=== PATIENT | female | born 1935 | race African-American/Black ===

== ENCOUNTER 2021-08-21 15:33 | Inpatient (IN) | payer OTHER, BC ==
[2021-08-21 15:52] VITALS: BMI 17.9
[2021-08-21] MEDS ORDERED: ACETAMINOPHEN 1000 MG/100 ML BAG IVPB ONE (16:45)
[2021-08-21] MEDS ORDERED: SODIUM CHLORIDE 0.9% 500 ML INFUS.BAG IV ONE (17:25)
[2021-08-21] MEDS ORDERED: ACETAMINOPHEN INJECTION 100 ML IVPB ONE (17:27)
[2021-08-21 18:53] LABS: BASO % 0.2 % (0-2.0); HEMATOCRIT 26.5 % (32.4-45.2); HEMOGLOBIN 8.1 GM/dL (10.7-15.3); LYMPH % 4.7 % (8-40); MCH 24.1 pg (25.7-33.7); MCHC 30.4 g/dl (32.0-36.0); MEAN CELL VOLUME 79.4 fl (80-96); MEAN PLT VOLUME 8.1 fl (7.5-11.1); MONO % 4.5 % (3.8-10.2); NEUT % 90.6 % (42.8-82.8); PLATELET COUNT 326 10^3/uL (134-434); RBC 3.34 M/mm3 (3.60-5.2); RDW 19.8 % (11.6-15.6); WHITE BLOOD COUNT 15.7 K/mm3 (4.0-10.0)
[2021-08-21 19:03] LABS: ALBUMIN 2.4 g/dl (3.4-5.0); BLOOD UREA NITROGEN 37.4 mg/dL (7-18)
[2021-08-21 19:06] LABS: CREATININE 2.1 mg/dL (0.55-1.3)
[2021-08-21 19:07] LABS: BILIRUBIN,TOTAL 0.7 mg/dL (0.2-1); TOT PROT 5.8 g/dl (6.4-8.2)
[2021-08-21 19:08] LABS: N-TERMINAL BNP 1539.2 pg/ml (5-450)
[2021-08-21] MEDS ORDERED: ACETAMINOPHEN 325 MG TABLET (FP) PO PRN (21:44)
[2021-08-21] MEDS ORDERED: POLYETHYLENE GLYCOL (HEALTHYLAX) 3350 17 GM PACKET PO PRN (21:44)
[2021-08-21 23:33] LABS: INR 1.09 (0.83-1.09); PROTHROMBIN TIME (PATIENT) 12.6 SEC (9.7-13.0)
[2021-08-22] MEDS ORDERED: HEPARIN NA (PORCINE) 5,000 UNITS/ML 1ML VIAL IVPUSH PRN ×2 (00:33)
[2021-08-22] MEDS ORDERED: HEPARIN NA (PORCINE) 5,000 UNITS/ML 1ML VIAL IVPUSH ONE (00:33)
[2021-08-22] MEDS ORDERED: HEPARIN NA (PORCINE) 5,000 UNITS/ML 1ML VIAL ONE (00:58)
[2021-08-22] MEDS: HEPARIN INFUSION - 25,000 UNITS/500 ML INFUS.BAG IVPB SCH ×2 (01:09→09:13)
[2021-08-22] MEDS ORDERED: SODIUM CHLORIDE 0.9% 500 ML INFUS.BAG IV ONE (01:46)
[2021-08-22] MEDS ORDERED: DEXTROSE 5%-0.45% SALINE 1,000 ML IV SCH (02:00)
[2021-08-22 06:46] LABS: BASO % 0.1 % (0-2.0); HEMATOCRIT 26.5 % (32.4-45.2); HEMOGLOBIN 8.2 GM/dL (10.7-15.3); LYMPH % 6.1 % (8-40); MCH 24.2 pg (25.7-33.7); MCHC 30.9 g/dl (32.0-36.0); MEAN CELL VOLUME 78.4 fl (80-96); MEAN PLT VOLUME 7.9 fl (7.5-11.1); MONO % 4.6 % (3.8-10.2); NEUT % 89.2 % (42.8-82.8); PLATELET COUNT 349 10^3/uL (134-434); RBC 3.38 M/mm3 (3.60-5.2); RDW 19.9 % (11.6-15.6); WHITE BLOOD COUNT 17.9 K/mm3 (4.0-10.0)
[2021-08-22 09:19] LABS: EPI CELLS 27 /uL (0-25.1); HYALINE CASTS 25 /uL (0-3.1); URINE APPEARANCE TURBID; URINE BILIRUBIN 3+ (NEGATIVE); URINE COLOR ORANGE; URINE GLUCOSE (UA) NEGATIVE (NEGATIVE); URINE KETONE TRACE (NEGATIVE); URINE LEUK ESTERASE 1+ (NEGATIVE); URINE NITRITE POSITIVE (NEGATIVE); URINE PROTEIN 2+ (NEGATIVE); URINE UROBILINOGEN 0.2 mg/dL (0.2-1.0); URINE WBC 247 /uL (0-25.8)
[2021-08-22] MEDS ORDERED: amLODIPine BESYLATE 5 MG TABLET (FP) ONE (09:20)
[2021-08-22] MEDS ORDERED: LOSARTAN POTASSIUM 50 MG TABLET ONE (09:21)
[2021-08-22 09:43] LABS: URINE RBC 85.3 /uL (0-23.9)
[2021-08-22 09:44] LABS: URINE BACTERIA 1780.9 /uL (0-1359); URINE CRYSTALS CA OXALATE /hpf
[2021-08-22] MEDS ORDERED: LOSARTAN POTASSIUM 50 MG TABLET PO SCH (10:00)
[2021-08-22] MEDS ORDERED: amLODIPine BESYLATE 5 MG TABLET (FP) PO SCH (10:00)
[2021-08-22 13:00] LABS: CALCIUM 7.8 mg/dL (8.5-10.1)
[2021-08-22] MEDS ORDERED: DEXTROSE 5%-NORMAL SALINE 1,000 ML IV SCH (13:00)
[2021-08-22 13:01] LABS: BLOOD UREA NITROGEN 44.4 mg/dL (7-18); MAGNESIUM 2.5 mg/dL (1.8-2.4)
[2021-08-22 13:04] LABS: CREATININE 2.2 mg/dL (0.55-1.3); URIC ACID 10.3 mg/dL (2.6-7.2)
[2021-08-22 13:05] LABS: BILIRUBIN,TOTAL 0.4 mg/dL (0.2-1)
[2021-08-22 13:06] LABS: TOT PROT 5.1 g/dl (6.4-8.2)
[2021-08-22] MEDS ORDERED: CEFTRIAXONE 1 GM/50 ML BAG ONE (14:02)
[2021-08-22] MEDS ORDERED: SODIUM CHLORIDE 1,000 ML IV SCH (14:15)
[2021-08-22] MEDS ORDERED: CEFTRIAXONE 1 GM in DEXTROSE 5%-WATER - 50 ML IVPB SCH (14:15)
[2021-08-22] MEDS: CEFTRIAXONE 1 GM in DEXTROSE 5%-WATER - 50 ML IVPB SCH (16:16)
[2021-08-22 16:36] LABS: INR 1.24 (0.83-1.09)
[2021-08-22 17:03] LABS: ACTIVATED PTT > 400.0 SECONDS (25.2-36.5)
[2021-08-22] MEDS: TIMOLOL 0.5% OPHTHALMIC SOL 5 ML BOTTLE OD SCH (19:28)
[2021-08-22] MEDS: CARBIDOPA/LEVODOPA 10/100 TABLET (FP) PO SCH ×2 (19:28→22:57)
[2021-08-23] MEDS: HEPARIN INFUSION - 25,000 UNITS/500 ML INFUS.BAG IVPB SCH (03:45)
[2021-08-23 09:24] LABS: CALCIUM 7.6 mg/dL (8.5-10.1)
[2021-08-23 09:25] LABS: BLOOD UREA NITROGEN 46.4 mg/dL (7-18); MAGNESIUM 2.4 mg/dL (1.8-2.4)
[2021-08-23 09:28] LABS: CREATININE 1.7 mg/dL (0.55-1.3)
[2021-08-23 09:29] LABS: TOT PROT 4.9 g/dl (6.4-8.2)
[2021-08-23 09:30] LABS: BILIRUBIN,TOTAL 0.4 mg/dL (0.2-1)
[2021-08-23 10:00] LABS: BASO % 0.1 % (0-2.0); EOS % 0.1 % (0-4.5); HEMATOCRIT 23.3 % (32.4-45.2); HEMOGLOBIN 7.2 GM/dL (10.7-15.3); LYMPH % 7.9 % (8-40); MCH 24.1 pg (25.7-33.7); MCHC 30.8 g/dl (32.0-36.0); MEAN CELL VOLUME 78.1 fl (80-96); MEAN PLT VOLUME 7.9 fl (7.5-11.1); MONO % 5.6 % (3.8-10.2); NEUT % 86.3 % (42.8-82.8); PLATELET COUNT 267 10^3/uL (134-434); RBC 2.99 M/mm3 (3.60-5.2); RDW 19.7 % (11.6-15.6); WHITE BLOOD COUNT 14.1 K/mm3 (4.0-10.0)
[2021-08-23] MEDS ORDERED: CEFTRIAXONE 1 GM/50 ML BAG ONE (10:35)
[2021-08-23] MEDS: CEFTRIAXONE 1 GM in DEXTROSE 5%-WATER - 50 ML IVPB SCH (11:05)
[2021-08-23] MEDS: CARBIDOPA/LEVODOPA 10/100 TABLET (FP) PO SCH ×2 (11:05→21:42)
[2021-08-23] MEDS: TIMOLOL 0.5% OPHTHALMIC SOL 5 ML BOTTLE OD SCH (12:14)
[2021-08-23] MEDS: SODIUM CHLORIDE 0.45% 1,000 ML IV SCH (15:38)
[2021-08-24] MEDS: HEPARIN INFUSION - 25,000 UNITS/500 ML INFUS.BAG IVPB SCH (06:38)
[2021-08-24 07:59] LABS: BASO % 0.1 % (0-2.0); EOS % 0.3 % (0-4.5); HEMATOCRIT 21.2 % (32.4-45.2); LYMPH % 12.9 % (8-40); MCH 24.6 pg (25.7-33.7); MCHC 31.6 g/dl (32.0-36.0); MEAN CELL VOLUME 77.9 fl (80-96); MEAN PLT VOLUME 8.1 fl (7.5-11.1); MONO % 6.9 % (3.8-10.2); NEUT % 79.8 % (42.8-82.8); PLATELET COUNT 266 10^3/uL (134-434); RBC 2.72 M/mm3 (3.60-5.2); RDW 20.1 % (11.6-15.6); WHITE BLOOD COUNT 9.5 K/mm3 (4.0-10.0)
[2021-08-24 08:11] LABS: CALCIUM 7.6 mg/dL (8.5-10.1); MAGNESIUM 2.2 mg/dL (1.8-2.4)
[2021-08-24 08:14] LABS: CREATININE 1.3 mg/dL (0.55-1.3)
[2021-08-24 08:16] LABS: BILIRUBIN,TOTAL 0.7 mg/dL (0.2-1); TOT PROT 4.8 g/dl (6.4-8.2)
[2021-08-24 09:11] LABS: HEMOGLOBIN 6.7 GM/dL (10.7-15.3)
[2021-08-24] MEDS ORDERED: cefTRIAXone SODIUM 1 GM VIAL ONE (10:00)
[2021-08-24] MEDS ORDERED: DEXTROSE 5%-WATER - 50 ML IVPB ONE (10:00)
[2021-08-24] MEDS: CEFTRIAXONE 1 GM in DEXTROSE 5%-WATER - 50 ML IVPB SCH (10:02)
[2021-08-24] MEDS: CARBIDOPA/LEVODOPA 10/100 TABLET (FP) PO SCH ×2 (10:02→22:45)
[2021-08-24] MEDS: TIMOLOL 0.5% OPHTHALMIC SOL 5 ML BOTTLE OD SCH (10:10)
[2021-08-24 11:50] LABS: HEMATOCRIT 20.7 % (32.4-45.2); MCH 24.9 pg (25.7-33.7); MCHC 32.4 g/dl (32.0-36.0); MEAN CELL VOLUME 76.8 fl (80-96); MEAN PLT VOLUME 7.6 fl (7.5-11.1); PLATELET COUNT 258 10^3/uL (134-434); RBC 2.69 M/mm3 (3.60-5.2); RDW 19.5 % (11.6-15.6); WHITE BLOOD COUNT 8.7 K/mm3 (4.0-10.0)
[2021-08-24 13:12] LABS: HEMOGLOBIN 6.7 GM/dL (10.7-15.3)
[2021-08-24] MEDS ORDERED: MEROPENEM 500 MG in DEXTROSE 5%-WATER 100 ML IVPB SCH (13:15)
[2021-08-24] MEDS: SODIUM CHLORIDE 0.45% 1,000 ML IV SCH (14:23)
[2021-08-24] MEDS: PANTOPRAZOLE SODIUM 40 MG VIAL IVPUSH SCH (18:24)
[2021-08-25] MEDS ORDERED: DEXTROSE 5%-WATER - 50 ML IVPB ONE (10:30)
[2021-08-25] MEDS ORDERED: cefTRIAXone SODIUM 1 GM VIAL ONE (10:30)
[2021-08-25] MEDS: CARBIDOPA/LEVODOPA 10/100 TABLET (FP) PO SCH ×2 (10:34→23:13)
[2021-08-25] MEDS: CEFTRIAXONE 1 GM in DEXTROSE 5%-WATER - 50 ML IVPB SCH (10:34)
[2021-08-25] MEDS: TIMOLOL 0.5% OPHTHALMIC SOL 5 ML BOTTLE OD SCH (10:35)
[2021-08-25] MEDS: PANTOPRAZOLE SODIUM 40 MG VIAL IVPUSH SCH (10:35)
[2021-08-25] MEDS: SODIUM CHLORIDE 0.45% 1,000 ML IV SCH (14:33)
[2021-08-25 15:05] LABS: MCH 26.5 pg (25.7-33.7); MCHC 33.2 g/dl (32.0-36.0); MEAN CELL VOLUME 79.8 fl (80-96); MEAN PLT VOLUME 7.8 fl (7.5-11.1); PLATELET COUNT 262 10^3/uL (134-434); RBC 3.38 M/mm3 (3.60-5.2); RDW 20.1 % (11.6-15.6); RETICULOCYTES 2.04 % (0.5-1.5); WHITE BLOOD COUNT 6.7 K/mm3 (4.0-10.0)
[2021-08-25 15:24] LABS: ANISOCYTOSIS 1+; MACROCYTOSIS 1+; PLATELET ESTIMATE NORMAL
[2021-08-25 15:38] LABS: IRON SERUM 68 ug/dL (50-175); TOTAL IRON BINDING CAPACITY 154 ug/dL (250-450)
[2021-08-25 15:39] LABS: CHLORIDE 114 mmol/L (98-107); SODIUM 142 mmol/L (136-145)
[2021-08-25 15:41] LABS: CALCIUM 7.7 mg/dL (8.5-10.1)
[2021-08-25 15:42] LABS: ALBUMIN 1.8 g/dl (3.4-5.0); ANION GAP 6 MMOL/L (8-16); BLOOD UREA NITROGEN 19.8 mg/dL (7-18); CO2 23 mmol/L (21-32); GLUCOSE,RANDOM 66 mg/dL (74-106)
[2021-08-25 15:45] LABS: CREATININE 0.7 mg/dL (0.55-1.3); SGOT/AST 15 U/L (15-37); SGPT/ALT < 6 U/L (13-61)
[2021-08-25 15:46] LABS: BILIRUBIN,TOTAL 0.6 mg/dL (0.2-1); TOT PROT 4.4 g/dl (6.4-8.2)
[2021-08-25 15:47] LABS: ALK PHOS 118 U/L (45-117)
[2021-08-26 07:44] LABS: CHLORIDE 111 mmol/L (98-107); SODIUM 141 mmol/L (136-145)
[2021-08-26 07:47] LABS: ANION GAP 9 MMOL/L (8-16); BASO % 0.2 % (0-2.0); BLOOD UREA NITROGEN 15.8 mg/dL (7-18); CALCIUM 7.7 mg/dL (8.5-10.1); CO2 20 mmol/L (21-32); EOS % 1.8 % (0-4.5); HEMATOCRIT 27.2 % (32.4-45.2); HEMOGLOBIN 8.9 GM/dL (10.7-15.3); LYMPH % 14.4 % (8-40); MCH 26.2 pg (25.7-33.7); MCHC 32.6 g/dl (32.0-36.0); MEAN CELL VOLUME 80.5 fl (80-96); MEAN PLT VOLUME 8.1 fl (7.5-11.1); MONO % 7.8 % (3.8-10.2); NEUT % 75.8 % (42.8-82.8); PLATELET COUNT 302 10^3/uL (134-434); RBC 3.38 M/mm3 (3.60-5.2); RDW 19.9 % (11.6-15.6); WHITE BLOOD COUNT 7.6 K/mm3 (4.0-10.0)
[2021-08-26 07:51] LABS: CREATININE 0.7 mg/dL (0.55-1.3)
[2021-08-26 07:56] LABS: GLUCOSE,RANDOM 49 mg/dL (74-106)
[2021-08-26] MEDS ORDERED: POTASSIUM CHLORIDE ORAL LIQUID 20 MEQ/15 ML PO ONE (08:29)
[2021-08-26] MEDS ORDERED: DEXTROSE 5%-WATER - 50 ML IVPB ONE (08:35)
[2021-08-26] MEDS ORDERED: cefTRIAXone SODIUM 1 GM VIAL ONE (08:35)
[2021-08-26] MEDS: CARBIDOPA/LEVODOPA 10/100 TABLET (FP) PO SCH ×2 (10:05→23:01)
[2021-08-26] MEDS: PANTOPRAZOLE SODIUM 40 MG VIAL IVPUSH SCH (10:05)
[2021-08-26] MEDS: CEFTRIAXONE 1 GM in DEXTROSE 5%-WATER - 50 ML IVPB SCH (10:05)
[2021-08-26] MEDS: ENOXAPARIN NA (PORCINE) 40 MG/0.4 ML DISP.SYRIN SQ SCH ×2 (10:05→22:58)
[2021-08-26] MEDS: D5-1/2NS+10 MEQ KCL - 10 MEQ/1,000 ML INFUS.BAG IV SCH (10:20)
[2021-08-26] MEDS: TIMOLOL 0.5% OPHTHALMIC SOL 5 ML BOTTLE OD SCH (13:39)
[2021-08-26 14:21] LABS: HEMATOCRIT 29.4 % (32.4-45.2); HEMOGLOBIN 9.5 GM/dL (10.7-15.3); MCHC 32.1 g/dl (32.0-36.0); MEAN PLT VOLUME 8.3 fl (7.5-11.1); PLATELET COUNT 323 10^3/uL (134-434); RBC 3.64 M/mm3 (3.60-5.2); RDW 20.1 % (11.6-15.6); WHITE BLOOD COUNT 7.9 K/mm3 (4.0-10.0)
[2021-08-27] MEDS: D5-1/2NS+10 MEQ KCL - 10 MEQ/1,000 ML INFUS.BAG IV SCH ×2 (02:00→09:01)
[2021-08-27 07:53] LABS: CALCIUM 7.3 mg/dL (8.5-10.1)
[2021-08-27 07:56] LABS: CREATININE 0.7 mg/dL (0.55-1.3)
[2021-08-27 08:00] LABS: BASO % 0.2 % (0-2.0); EOS % 1.5 % (0-4.5); HEMATOCRIT 25.8 % (32.4-45.2); HEMOGLOBIN 8.4 GM/dL (10.7-15.3); LYMPH % 12.8 % (8-40); MCH 26.2 pg (25.7-33.7); MCHC 32.6 g/dl (32.0-36.0); MEAN CELL VOLUME 80.5 fl (80-96); MEAN PLT VOLUME 7.7 fl (7.5-11.1); NEUT % 75.5 % (42.8-82.8); PLATELET COUNT 298 10^3/uL (134-434); RBC 3.21 M/mm3 (3.60-5.2); WHITE BLOOD COUNT 7.2 K/mm3 (4.0-10.0)
[2021-08-27] MEDS ORDERED: cefTRIAXone SODIUM 1 GM VIAL ONE (08:23)
[2021-08-27] MEDS ORDERED: DEXTROSE 5%-WATER - 50 ML IVPB ONE (08:24)
[2021-08-27] MEDS: TIMOLOL 0.5% OPHTHALMIC SOL 5 ML BOTTLE OD SCH (09:00)
[2021-08-27] MEDS: ENOXAPARIN NA (PORCINE) 40 MG/0.4 ML DISP.SYRIN SQ SCH ×2 (09:00→21:21)
[2021-08-27] MEDS: CEFTRIAXONE 1 GM in DEXTROSE 5%-WATER - 50 ML IVPB SCH (09:01)
[2021-08-27] MEDS: PANTOPRAZOLE SODIUM 40 MG VIAL IVPUSH SCH (09:01)
[2021-08-27] MEDS: CARBIDOPA/LEVODOPA 10/100 TABLET (FP) PO SCH ×2 (14:00→21:21)
[2021-08-28 08:28] LABS: BASO % 0.3 % (0-2.0); EOS % 2.5 % (0-4.5); HEMATOCRIT 25.3 % (32.4-45.2); HEMOGLOBIN 8.2 GM/dL (10.7-15.3); LYMPH % 17.7 % (8-40); MCH 26.4 pg (25.7-33.7); MCHC 32.4 g/dl (32.0-36.0); MEAN CELL VOLUME 81.5 fl (80-96); MEAN PLT VOLUME 8.2 fl (7.5-11.1); MONO % 9.3 % (3.8-10.2); NEUT % 70.2 % (42.8-82.8); PLATELET COUNT 318 10^3/uL (134-434); RBC 3.11 M/mm3 (3.60-5.2); RDW 20.4 % (11.6-15.6); WHITE BLOOD COUNT 6.5 K/mm3 (4.0-10.0)
[2021-08-28] MEDS ORDERED: DEXTROSE 5%-WATER - 50 ML IVPB ONE (08:45)
[2021-08-28] MEDS ORDERED: cefTRIAXone SODIUM 1 GM VIAL ONE (08:45)
[2021-08-28 09:01] LABS: CALCIUM 7.3 mg/dL (8.5-10.1)
[2021-08-28 09:04] LABS: CREATININE 0.6 mg/dL (0.55-1.3)
[2021-08-28] MEDS: CARBIDOPA/LEVODOPA 10/100 TABLET (FP) PO SCH ×2 (09:47→21:31)
[2021-08-28] MEDS: ENOXAPARIN NA (PORCINE) 40 MG/0.4 ML DISP.SYRIN SQ SCH ×2 (09:47→21:31)
[2021-08-28] MEDS: CEFTRIAXONE 1 GM in DEXTROSE 5%-WATER - 50 ML IVPB SCH (09:47)
[2021-08-28] MEDS: PANTOPRAZOLE SODIUM 40 MG VIAL IVPUSH SCH (09:47)
[2021-08-28] MEDS: TIMOLOL 0.5% OPHTHALMIC SOL 5 ML BOTTLE OD SCH (09:58)
[2021-08-28] MEDS ORDERED: D5-1/2NS+10 MEQ KCL - 10 MEQ/1,000 ML INFUS.BAG IV SCH (13:50)
[2021-08-28] MEDS: MIRTAZAPINE 15 MG TABLET (FP) PO SCH (21:31)
[2021-08-29 07:30] LABS: BASO % 0.7 % (0-2.0); EOS % 1.9 % (0-4.5); HEMATOCRIT 27.6 % (32.4-45.2); HEMOGLOBIN 8.9 GM/dL (10.7-15.3); LYMPH % 15.8 % (8-40); MCH 26.6 pg (25.7-33.7); MCHC 32.2 g/dl (32.0-36.0); MEAN CELL VOLUME 82.8 fl (80-96); MEAN PLT VOLUME 8.3 fl (7.5-11.1); NEUT % 72.6 % (42.8-82.8); PLATELET COUNT 207 10^3/uL (134-434); RBC 3.33 M/mm3 (3.60-5.2); RDW 20.5 % (11.6-15.6); WHITE BLOOD COUNT 6.1 K/mm3 (4.0-10.0)
[2021-08-29 07:47] LABS: CHLORIDE 110 mmol/L (98-107); SODIUM 138 mmol/L (136-145)
[2021-08-29 07:48] LABS: CALCIUM 7.5 mg/dL (8.5-10.1)
[2021-08-29 07:49] LABS: ALBUMIN 1.5 g/dl (3.4-5.0); ANION GAP 8 MMOL/L (8-16); CO2 21 mmol/L (21-32); GLUCOSE,RANDOM 80 mg/dL (74-106)
[2021-08-29 07:52] LABS: CREATININE 0.6 mg/dL (0.55-1.3); PHOSPHOROUS 1.5 mg/dL (2.5-4.9); SGOT/AST 14 U/L (15-37); SGPT/ALT < 6 U/L (13-61)
[2021-08-29 07:54] LABS: ALK PHOS 127 U/L (45-117); BILIRUBIN,TOTAL 0.4 mg/dL (0.2-1); TOT PROT 4.2 g/dl (6.4-8.2)
[2021-08-29 09:23] LABS: ANISOCYTOSIS 1+; MACROCYTOSIS 1+; PLATELET ESTIMATE NORMAL
[2021-08-29] MEDS ORDERED: cefTRIAXone SODIUM 1 GM VIAL ONE (10:30)
[2021-08-29] MEDS ORDERED: DEXTROSE 5%-WATER - 50 ML IVPB ONE (10:31)
[2021-08-29] MEDS: CEFTRIAXONE 1 GM in DEXTROSE 5%-WATER - 50 ML IVPB SCH (11:25)
[2021-08-29] MEDS: PANTOPRAZOLE SODIUM 40 MG VIAL IVPUSH SCH (11:26)
[2021-08-29] MEDS: ENOXAPARIN NA (PORCINE) 40 MG/0.4 ML DISP.SYRIN SQ SCH ×2 (11:26→23:19)
[2021-08-29] MEDS: CARBIDOPA/LEVODOPA 10/100 TABLET (FP) PO SCH ×2 (11:27→23:21)
[2021-08-29] MEDS: TIMOLOL 0.5% OPHTHALMIC SOL 5 ML BOTTLE OD SCH (11:27)
[2021-08-29] MEDS: AMINO ACIDS 4.25%/D5W 1,000 ML IV SCH (11:28)
[2021-08-29 11:32] LABS: LIPASE 182 U/L (73-393)
[2021-08-29] MEDS ORDERED: SODIUM PHOSPHATE - 30 MM in DEXTROSE 5%-WATER - 500 ML IVPB ONE (11:42)
[2021-08-29] MEDS: CYANOCOBALAMIN (VITAMIN B-12) 1000 MCG/1 ML VIAL IM SCH (17:22)
[2021-08-29] MEDS ORDERED: LORazepam 2 MG/ML SDV VIAL IVPUSH ONE (20:30)
[2021-08-29] MEDS: MIRTAZAPINE 15 MG TABLET (FP) PO SCH (23:19)
[2021-08-30] MEDS ORDERED: cefTRIAXone SODIUM 1 GM VIAL ONE (08:26)
[2021-08-30] MEDS ORDERED: DEXTROSE 5%-WATER - 50 ML IVPB ONE (08:26)
[2021-08-30] MEDS: PANTOPRAZOLE SODIUM 40 MG VIAL IVPUSH SCH (10:55)
[2021-08-30] MEDS: CEFTRIAXONE 1 GM in DEXTROSE 5%-WATER - 50 ML IVPB SCH (10:56)
[2021-08-30] MEDS: ENOXAPARIN NA (PORCINE) 40 MG/0.4 ML DISP.SYRIN SQ SCH ×2 (10:56→22:44)
[2021-08-30] MEDS: AMINO ACIDS 4.25%/D5W 1,000 ML IV SCH (10:56)
[2021-08-30] MEDS: CARBIDOPA/LEVODOPA 10/100 TABLET (FP) PO SCH ×2 (10:57→22:44)
[2021-08-30] MEDS: TIMOLOL 0.5% OPHTHALMIC SOL 5 ML BOTTLE OD SCH (10:57)
[2021-08-30] MEDS: CYANOCOBALAMIN (VITAMIN B-12) 1000 MCG/1 ML VIAL IM SCH (11:00)
[2021-08-30] MEDS ORDERED: LORazepam 2 MG/ML SDV VIAL IVPUSH ONE (15:00)
[2021-08-30] MEDS: MIRTAZAPINE 15 MG TABLET (FP) PO SCH (22:44)
[2021-08-31] MEDS: ENOXAPARIN NA (PORCINE) 40 MG/0.4 ML DISP.SYRIN SQ SCH ×2 (09:10→21:10)
[2021-08-31] MEDS: CYANOCOBALAMIN (VITAMIN B-12) 1000 MCG/1 ML VIAL IM SCH (09:12)
[2021-08-31] MEDS: PANTOPRAZOLE SODIUM 40 MG VIAL IVPUSH SCH (09:17)
[2021-08-31] MEDS: CARBIDOPA/LEVODOPA 10/100 TABLET (FP) PO SCH ×2 (09:17→21:11)
[2021-08-31] MEDS: AMINO ACIDS 4.25%/D5W 1,000 ML IV SCH (09:22)
[2021-08-31] MEDS: TIMOLOL 0.5% OPHTHALMIC SOL 5 ML BOTTLE OD SCH (09:26)
[2021-08-31 10:55] LABS: BASO % 1.4 % (0-2.0); EOS % 2.6 % (0-4.5); HEMATOCRIT 25.9 % (32.4-45.2); HEMOGLOBIN 8.5 GM/dL (10.7-15.3); LYMPH % 16.1 % (8-40); MCH 26.9 pg (25.7-33.7); MEAN CELL VOLUME 81.5 fl (80-96); MEAN PLT VOLUME 7.5 fl (7.5-11.1); MONO % 10.8 % (3.8-10.2); NEUT % 69.1 % (42.8-82.8); PLATELET COUNT 389 10^3/uL (134-434); RBC 3.17 M/mm3 (3.60-5.2)
[2021-08-31 11:19] LABS: CHLORIDE 111 mmol/L (98-107); SODIUM 138 mmol/L (136-145)
[2021-08-31 11:21] LABS: CALCIUM 7.4 mg/dL (8.5-10.1)
[2021-08-31 11:22] LABS: ALBUMIN 1.4 g/dl (3.4-5.0); ANION GAP 2 MMOL/L (8-16); BLOOD UREA NITROGEN 10.4 mg/dL (7-18); CO2 24 mmol/L (21-32); GLUCOSE,RANDOM 107 mg/dL (74-106)
[2021-08-31 11:25] LABS: CREATININE 0.6 mg/dL (0.55-1.3); SGOT/AST 12 U/L (15-37)
[2021-08-31 11:26] LABS: BILIRUBIN,TOTAL 0.7 mg/dL (0.2-1)
[2021-08-31 11:27] LABS: TOT PROT 3.9 g/dl (6.4-8.2)
[2021-08-31 11:28] LABS: ALK PHOS 115 U/L (45-117)
[2021-08-31 11:31] LABS: SGPT/ALT < 6 U/L (13-61)
[2021-08-31] MEDS ORDERED: POTASSIUM CHLORIDE ORAL LIQUID 20 MEQ/15 ML PO ONE (15:13)
[2021-08-31] MEDS: MIRTAZAPINE 15 MG TABLET (FP) PO SCH (21:10)
[2021-09-01 07:49] LABS: BASO % 1.2 % (0-2.0); HEMATOCRIT 23.1 % (32.4-45.2); HEMOGLOBIN 7.6 GM/dL (10.7-15.3); LYMPH % 20.5 % (8-40); MCH 26.9 pg (25.7-33.7); MEAN CELL VOLUME 81.5 fl (80-96); MEAN PLT VOLUME 7.3 fl (7.5-11.1); MONO % 13.4 % (3.8-10.2); NEUT % 62.9 % (42.8-82.8); PLATELET COUNT 337 10^3/uL (134-434); RBC 2.83 M/mm3 (3.60-5.2); RDW 21.2 % (11.6-15.6); WHITE BLOOD COUNT 4.2 K/mm3 (4.0-10.0)
[2021-09-01 08:27] LABS: CHLORIDE 110 mmol/L (98-107); SODIUM 139 mmol/L (136-145)
[2021-09-01 08:34] LABS: ALBUMIN 1.4 g/dl (3.4-5.0); ANION GAP 6 MMOL/L (8-16); BLOOD UREA NITROGEN 12.2 mg/dL (7-18); CALCIUM 7.3 mg/dL (8.5-10.1); CO2 22 mmol/L (21-32); GLUCOSE,RANDOM 90 mg/dL (74-106)
[2021-09-01 08:37] LABS: CREATININE 0.5 mg/dL (0.55-1.3)
[2021-09-01 08:38] LABS: SGOT/AST 13 U/L (15-37)
[2021-09-01 08:39] LABS: BILIRUBIN,TOTAL 0.4 mg/dL (0.2-1); TOT PROT 3.6 g/dl (6.4-8.2)
[2021-09-01 08:40] LABS: ALK PHOS 103 U/L (45-117)
[2021-09-01 09:19] LABS: SGPT/ALT < 6 U/L (13-61)
[2021-09-01] MEDS: AMINO ACIDS 4.25%/D5W 1,000 ML IV SCH (09:57)
[2021-09-01] MEDS: TIMOLOL 0.5% OPHTHALMIC SOL 5 ML BOTTLE OD SCH (09:58)
[2021-09-01] MEDS: PANTOPRAZOLE SODIUM 40 MG VIAL IVPUSH SCH (09:58)
[2021-09-01] MEDS: CARBIDOPA/LEVODOPA 10/100 TABLET (FP) PO SCH ×2 (09:58→22:00)
[2021-09-01] MEDS: ENOXAPARIN NA (PORCINE) 40 MG/0.4 ML DISP.SYRIN SQ SCH ×2 (09:58→22:00)
[2021-09-01 10:09] LABS: ANISOCYTOSIS 2+; MACROCYTOSIS 0; PLATELET ESTIMATE NORMAL
[2021-09-01 11:02] LABS: HEMATOCRIT 24.6 % (32.4-45.2); MCH 26.7 pg (25.7-33.7); MCHC 32.5 g/dl (32.0-36.0); MEAN CELL VOLUME 82.2 fl (80-96); MEAN PLT VOLUME 7.6 fl (7.5-11.1); PLATELET COUNT 351 10^3/uL (134-434); RBC 2.99 M/mm3 (3.60-5.2); RDW 21.2 % (11.6-15.6); WHITE BLOOD COUNT 4.9 K/mm3 (4.0-10.0)
[2021-09-01] MEDS: MIRTAZAPINE 15 MG TABLET (FP) PO SCH (22:00)
[2021-09-02 08:13] LABS: EOS % 1.8 % (0-4.5); HEMATOCRIT 23.3 % (32.4-45.2); HEMOGLOBIN 7.7 GM/dL (10.7-15.3); MEAN CELL VOLUME 81.7 fl (80-96); MEAN PLT VOLUME 7.5 fl (7.5-11.1); MONO % 11.4 % (3.8-10.2); NEUT % 65.8 % (42.8-82.8); PLATELET COUNT 335 10^3/uL (134-434); RBC 2.85 M/mm3 (3.60-5.2); RDW 20.8 % (11.6-15.6); WHITE BLOOD COUNT 4.3 K/mm3 (4.0-10.0)
[2021-09-02 09:04] LABS: CALCIUM 7.7 mg/dL (8.5-10.1)
[2021-09-02 09:05] LABS: BLOOD UREA NITROGEN 14.8 mg/dL (7-18)
[2021-09-02 09:08] LABS: CREATININE 0.5 mg/dL (0.55-1.3)
[2021-09-02] MEDS: TIMOLOL 0.5% OPHTHALMIC SOL 5 ML BOTTLE OD SCH (10:29)
[2021-09-02] MEDS: PANTOPRAZOLE SODIUM 40 MG VIAL IVPUSH SCH (10:30)
[2021-09-02] MEDS: AMINO ACIDS 4.25%/D5W 1,000 ML IV SCH (10:30)
[2021-09-02] MEDS: CARBIDOPA/LEVODOPA 10/100 TABLET (FP) PO SCH ×2 (10:31→22:50)
[2021-09-02] MEDS: FERROUS SO4 325 MG TABLET (FP) PO SCH (18:26)
[2021-09-02] MEDS ORDERED: ACETAMINOPHEN 325 MG TABLET (FP) PO PRN (20:46)
[2021-09-02] MEDS: POLYETHYLENE GLYCOL (HEALTHYLAX) 3350 17 GM PACKET PO SCH (21:38)
[2021-09-02] MEDS: MIRTAZAPINE 15 MG TABLET (FP) PO SCH (21:38)
[2021-09-03] MEDS: FERROUS SO4 325 MG TABLET (FP) PO SCH ×2 (09:36→17:31)
[2021-09-03] MEDS: FOLIC ACID 1 MG TABLET (FP) PO SCH (09:39)
[2021-09-03] MEDS: PANTOPRAZOLE SODIUM 40 MG VIAL IVPUSH SCH (09:39)
[2021-09-03] MEDS: POLYETHYLENE GLYCOL (HEALTHYLAX) 3350 17 GM PACKET PO SCH ×2 (09:39→21:59)
[2021-09-03] MEDS: ASCORBIC ACID 500 MG TABLET (FP) PO SCH (09:40)
[2021-09-03] MEDS: TICAGRELOR 60 MG TABLET PO SCH (09:40)
[2021-09-03] MEDS: CARBIDOPA/LEVODOPA 10/100 TABLET (FP) PO SCH ×2 (09:40→21:59)
[2021-09-03] MEDS: TIMOLOL 0.5% OPHTHALMIC SOL 5 ML BOTTLE OD SCH (11:29)
[2021-09-03 11:49] LABS: BASO % 1.2 % (0-2.0); EOS % 1.5 % (0-4.5); HEMATOCRIT 26.1 % (32.4-45.2); HEMOGLOBIN 8.8 GM/dL (10.7-15.3); LYMPH % 17.7 % (8-40); MCH 27.6 pg (25.7-33.7); MCHC 33.5 g/dl (32.0-36.0); MEAN CELL VOLUME 82.6 fl (80-96); MEAN PLT VOLUME 7.6 fl (7.5-11.1); MONO % 8.3 % (3.8-10.2); NEUT % 71.3 % (42.8-82.8); PLATELET COUNT 345 10^3/uL (134-434); RBC 3.17 M/mm3 (3.60-5.2); RDW 20.6 % (11.6-15.6); WHITE BLOOD COUNT 4.3 K/mm3 (4.0-10.0)
[2021-09-03 11:55] LABS: BLOOD UREA NITROGEN 13.6 mg/dL (7-18); CALCIUM 7.9 mg/dL (8.5-10.1)
[2021-09-03 11:58] LABS: CREATININE 0.5 mg/dL (0.55-1.3)
[2021-09-03 11:59] LABS: BILIRUBIN,TOTAL 0.4 mg/dL (0.2-1); TOT PROT 4.5 g/dl (6.4-8.2)
[2021-09-03 12:01] LABS: ALBUMIN 1.7 g/dl (3.4-5.0)
[2021-09-03 12:11] LABS: HEMATOCRIT 26.8 % (32.4-45.2); HEMOGLOBIN 8.8 GM/dL (10.7-15.3); MCH 27.3 pg (25.7-33.7); MCHC 32.7 g/dl (32.0-36.0); MEAN CELL VOLUME 83.3 fl (80-96); MEAN PLT VOLUME 7.6 fl (7.5-11.1); PLATELET COUNT 360 10^3/uL (134-434); RBC 3.22 M/mm3 (3.60-5.2); RDW 21.1 % (11.6-15.6); WHITE BLOOD COUNT 4.3 K/mm3 (4.0-10.0)
[2021-09-03] MEDS: AMINO ACIDS 4.25%/D5W 1,000 ML IV SCH (17:32)
[2021-09-03] MEDS: MIRTAZAPINE 15 MG TABLET (FP) PO SCH (21:59)
[2021-09-04] MEDS: FERROUS SO4 325 MG TABLET (FP) PO SCH ×2 (08:55→18:24)
[2021-09-04 08:59] LABS: CALCIUM 7.9 mg/dL (8.5-10.1)
[2021-09-04 09:00] LABS: ALBUMIN 1.5 g/dl (3.4-5.0); BLOOD UREA NITROGEN 16.5 mg/dL (7-18)
[2021-09-04 09:02] LABS: PHOSPHOROUS 1.2 mg/dL (2.5-4.9)
[2021-09-04 09:03] LABS: CREATININE 0.5 mg/dL (0.55-1.3)
[2021-09-04 09:04] LABS: TOT PROT 4.1 g/dl (6.4-8.2)
[2021-09-04 09:05] LABS: BILIRUBIN,TOTAL 0.4 mg/dL (0.2-1)
[2021-09-04] MEDS: AMINO ACIDS 4.25%/D5W 1,000 ML IV SCH (11:14)
[2021-09-04] MEDS: PANTOPRAZOLE SODIUM 40 MG VIAL IVPUSH SCH (11:28)
[2021-09-04] MEDS: ASCORBIC ACID 500 MG TABLET (FP) PO SCH (11:31)
[2021-09-04] MEDS: POLYETHYLENE GLYCOL (HEALTHYLAX) 3350 17 GM PACKET PO SCH ×2 (11:31→21:06)
[2021-09-04] MEDS: FOLIC ACID 1 MG TABLET (FP) PO SCH (11:31)
[2021-09-04] MEDS: TIMOLOL 0.5% OPHTHALMIC SOL 5 ML BOTTLE OD SCH (11:32)
[2021-09-04] MEDS: CARBIDOPA/LEVODOPA 10/100 TABLET (FP) PO SCH ×2 (11:32→21:05)
[2021-09-04] MEDS: TICAGRELOR 60 MG TABLET PO SCH (11:32)
[2021-09-04] MEDS ORDERED: POTASSIUM PHOSPHATE 30 MM in DEXTROSE 5%-WATER - 500 ML IVPB ONE (14:00)
[2021-09-04] MEDS: MIRTAZAPINE 15 MG TABLET (FP) PO SCH (21:06)
[2021-09-05] MEDS: AMINO ACIDS 4.25%/D5W 1,000 ML IV SCH ×2 (04:46→11:02)
[2021-09-05] MEDS: PANTOPRAZOLE SODIUM 40 MG VIAL IVPUSH SCH (09:08)
[2021-09-05] MEDS: FERROUS SO4 325 MG TABLET (FP) PO SCH ×2 (09:09→17:18)
[2021-09-05] MEDS: CARBIDOPA/LEVODOPA 10/100 TABLET (FP) PO SCH (09:19)
[2021-09-05] MEDS: TICAGRELOR 60 MG TABLET PO SCH (09:19)
[2021-09-05] MEDS: FOLIC ACID 1 MG TABLET (FP) PO SCH (09:19)
[2021-09-05] MEDS: ASCORBIC ACID 500 MG TABLET (FP) PO SCH (09:19)
[2021-09-05] MEDS: POLYETHYLENE GLYCOL (HEALTHYLAX) 3350 17 GM PACKET PO SCH (09:19)
[2021-09-05] MEDS: TIMOLOL 0.5% OPHTHALMIC SOL 5 ML BOTTLE OD SCH (09:19)
[2021-09-05] MEDS ORDERED: PANTOPRAZOLE 40 MG TABLET PO SCH (10:45)
[2021-09-05] MEDS ORDERED: ENOXAPARIN NA (PORCINE) 40 MG/0.4 ML DISP.SYRIN SQ SCH (10:45)
[2021-09-05 12:47] LABS: BASO % 1.2 % (0-2.0); EOS % 1.8 % (0-4.5); HEMATOCRIT 23.9 % (32.4-45.2); HEMOGLOBIN 7.9 GM/dL (10.7-15.3); LYMPH % 16.6 % (8-40); MCH 27.2 pg (25.7-33.7); MEAN CELL VOLUME 82.5 fl (80-96); MEAN PLT VOLUME 7.6 fl (7.5-11.1); MONO % 11.3 % (3.8-10.2); NEUT % 69.1 % (42.8-82.8); PLATELET COUNT 325 10^3/uL (134-434); RBC 2.89 M/mm3 (3.60-5.2); RDW 22.2 % (11.6-15.6); WHITE BLOOD COUNT 4.8 K/mm3 (4.0-10.0)
[2021-09-05 13:18] LABS: CALCIUM 7.8 mg/dL (8.5-10.1)
[2021-09-05 13:19] LABS: MAGNESIUM 1.5 mg/dL (1.8-2.4)
[2021-09-05 13:21] LABS: CREATININE 0.5 mg/dL (0.55-1.3); PHOSPHOROUS 2.3 mg/dL (2.5-4.9)
[2021-09-05 13:57] LABS: ANISOCYTOSIS 2+; MACROCYTOSIS 1+; PLATELET ESTIMATE NORMAL
[2021-09-05 15:05] VITALS: BP 123/60; PULSE 66; TEMP 97.9
[2021-09-05] MEDS ORDERED: MAGNESIUM 1GM/D5W - 1 GM/100 ML IVPB IVPB ONE (16:30)
[2021-09-05] MEDS ORDERED: MAGNESIUM OXIDE 400 MG TABLET (FP) PO ONE (17:05)
[2021-09-05] MEDS ORDERED: MAGNESIUM OXIDE 400 MG TABLET (FP) PO SCH (22:00)
== END 2021-09-05 18:48 | DRG 871 ==
LOC: JER 15:33 → JERBED 18:07 → J4W 08-23 21:55 → J6S 09-02 19:53
PROVIDERS: ADMIT Hospitalist; ATTEND Internal Medicine
PROC: 30233N1 Transfusion of Nonautologous Red Blood Cells into Peripheral Vein, Percutaneous Approach (ICD-10-PCS; principal; 2021-08-24)
DX: A41.9 Sepsis, unspecified organism (principal); G93.41 Metabolic encephalopathy; E43 Unspecified severe protein-calorie malnutrition; J18.9 Pneumonia, unspecified organism; I82.402 Acute embolism and thrombosis of unspecified deep veins of left lower extremity; N17.9 Acute kidney failure, unspecified; I50.30 Unspecified diastolic (congestive) heart failure; I24.8 Other forms of acute ischemic heart disease; N39.0 Urinary tract infection, site not specified; R64 Cachexia; Z68.1 Body mass index [BMI] 19.9 or less, adult; G20 Parkinson's disease; F03.90 Unspecified dementia, unspecified severity, without behavioral disturbance, psychotic disturbance, mood disturbance, and anxiety; D49.1 Neoplasm of unspecified behavior of respiratory system; D64.9 Anemia, unspecified; E83.51 Hypocalcemia; H54.40 Blindness, one eye, unspecified eye; I10 Essential (primary) hypertension; B96.20 Unspecified Escherichia coli [E. coli] as the cause of diseases classified elsewhere
CPT/HCPCS: 36415; 36430; 70450-TC; 70551-TC; 71045-TC-FY; 71250-TC; 72131-TC; 74177-TC; 80048; 80053; 80061; 81003; 82378; 82550; 82570; 82607; 82962; 83036; 83540; 83550; 83605; 83690; 83735; 83880; 84100; 84156; 84300; 84443; 84484; 84550; 85025; 85027; 85045; 85379; 85610; 85730; 86038; 86850; 86900; 86901; 86922; 87086; 87186; 93005; 93010; 93306-TC; 93880-TC; 93970-TC; 97116-GP; 97161-GP; 99285-25; C9803; J0131; J1644; P9058; Q9967; U0003; U0005

== ENCOUNTER 2021-10-15 13:15 | Inpatient (IN) | payer OTHER, BC ==
[2021-10-15 13:38] VITALS: BMI 17.6
[2021-10-15 15:45] LABS: BASO % 0.3 % (0-2.0); HEMATOCRIT 16.2 % (32.4-45.2); LYMPH % 6.8 % (8-40); MCHC 31.7 g/dl (32.0-36.0); MEAN CELL VOLUME 97.7 fl (80-96); MEAN PLT VOLUME 7.3 fl (7.5-11.1); MONO % 3.4 % (3.8-10.2); NEUT % 89.5 % (42.8-82.8); PLATELET COUNT 677 10^3/uL (134-434); RBC 1.66 M/mm3 (3.60-5.2); RDW 18.4 % (11.6-15.6); WHITE BLOOD COUNT 13.1 K/mm3 (4.0-10.0)
[2021-10-15 15:51] LABS: HEMOGLOBIN 5.2 GM/dL (10.7-15.3)
[2021-10-15 16:04] LABS: ALBUMIN 1.5 g/dl (3.4-5.0); CALCIUM 7.9 mg/dL (8.5-10.1)
[2021-10-15 16:05] LABS: BLOOD UREA NITROGEN 27.1 mg/dL (7-18)
[2021-10-15 16:07] LABS: CREATININE 0.9 mg/dL (0.55-1.3)
[2021-10-15 16:09] LABS: BILIRUBIN,TOTAL 0.2 mg/dL (0.2-1); TOT PROT 4.5 g/dl (6.4-8.2)
[2021-10-15] MEDS ORDERED: ONDANSETRON 4 MG/2 ML VIAL IVPUSH ONE (16:58)
[2021-10-15] MEDS ORDERED: ONDANSETRON 4 MG/2 ML VIAL ONE (16:59)
[2021-10-15 19:07] LABS: URINE APPEARANCE CLEAR; URINE BILIRUBIN NEGATIVE (NEGATIVE); URINE COLOR YELLOW; URINE GLUCOSE (UA) NEGATIVE (NEGATIVE); URINE KETONE NEGATIVE (NEGATIVE); URINE LEUK ESTERASE NEGATIVE (NEGATIVE); URINE NITRITE NEGATIVE (NEGATIVE); URINE PROTEIN NEGATIVE (NEGATIVE); URINE UROBILINOGEN 0.2 mg/dL (0.2-1.0)
[2021-10-16] MEDS ORDERED: PIPERACILLIN/TAZOB 2.25 GM 2.25 GM in DEXTROSE 5%-WATER - 50 ML IVPB SCH (08:00)
[2021-10-16] MEDS ORDERED: TICAGRELOR 60 MG TABLET PO SCH (10:00)
[2021-10-16] MEDS ORDERED: PANTOPRAZOLE SODIUM 40 MG in SODIUM CHLORIDE 100 ML IVPUSH SCH (10:00)
[2021-10-16] MEDS ORDERED: PANTOPRAZOLE SODIUM 40 MG VIAL ONE ×2 (10:38→21:17)
[2021-10-16] MEDS: CARBIDOPA/LEVODOPA 10/100 TABLET (FP) PO SCH ×2 (10:48→22:25)
[2021-10-16] MEDS: TIMOLOL 0.5% OPHTHALMIC SOL 5 ML BOTTLE OD SCH (10:49)
[2021-10-16] MEDS: PANTOPRAZOLE SODIUM 40 MG VIAL IVPUSH SCH ×2 (10:49→21:39)
[2021-10-16 11:33] LABS: HEMATOCRIT 27.2 % (32.4-45.2); HEMOGLOBIN 9.1 GM/dL (10.7-15.3); MCH 29.9 pg (25.7-33.7); MCHC 33.4 g/dl (32.0-36.0); MEAN CELL VOLUME 89.5 fl (80-96); PLATELET COUNT 541 10^3/uL (134-434); RBC 3.04 M/mm3 (3.60-5.2); RDW 18.2 % (11.6-15.6); WHITE BLOOD COUNT 16.8 K/mm3 (4.0-10.0)
[2021-10-16 11:42] LABS: INR 1.4 (0.83-1.09); PROTHROMBIN TIME (PATIENT) 16.2 SEC (9.7-13.0)
[2021-10-16 11:45] LABS: ACTIVATED PTT 27.3 SECONDS (25.2-36.5)
[2021-10-16 11:56] LABS: BLOOD UREA NITROGEN 31.9 mg/dL (7-18); CALCIUM 8.1 mg/dL (8.5-10.1); MAGNESIUM 2.3 mg/dL (1.8-2.4)
[2021-10-16 12:00] LABS: CREATININE 0.9 mg/dL (0.55-1.3); PHOSPHOROUS 3.6 mg/dL (2.5-4.9)
[2021-10-16 12:02] LABS: ANISOCYTOSIS 0; HELMET CELLS 0; HOWELL-JOLLY BODIES 0; MACROCYTOSIS 0; OVALOCYTE 0; ROULEAU 0; SICKELED CELLS 0; TARGET CELLS 0; TEAR DROP CELLS 0; TOXIC GRANULATION 0
[2021-10-16 14:07] LABS: SARS-CoV-2 NAA Not Detected (Not Detected)
[2021-10-16] MEDS ORDERED: MIRTAZAPINE 15 MG TABLET (FP) ONE (21:17)
[2021-10-16] MEDS: MIRTAZAPINE 15 MG TABLET (FP) PO SCH (21:39)
[2021-10-17] MEDS: PANTOPRAZOLE SODIUM 40 MG VIAL IVPUSH SCH ×2 (10:27→21:30)
[2021-10-17] MEDS: CARBIDOPA/LEVODOPA 10/100 TABLET (FP) PO SCH ×2 (10:27→21:30)
[2021-10-17 12:06] LABS: HEMATOCRIT 27.6 % (32.4-45.2); HEMOGLOBIN 9.3 GM/dL (10.7-15.3); MCH 30.6 pg (25.7-33.7); MCHC 33.6 g/dl (32.0-36.0); MEAN PLT VOLUME 7.5 fl (7.5-11.1); PLATELET COUNT 520 10^3/uL (134-434); RBC 3.03 M/mm3 (3.60-5.2); RDW 18.1 % (11.6-15.6); WHITE BLOOD COUNT 10.2 K/mm3 (4.0-10.0)
[2021-10-17 12:34] LABS: CALCIUM 7.7 mg/dL (8.5-10.1)
[2021-10-17 12:35] LABS: BLOOD UREA NITROGEN 30.3 mg/dL (7-18)
[2021-10-17 12:38] LABS: CREATININE 0.8 mg/dL (0.55-1.3)
[2021-10-17] MEDS: TIMOLOL 0.5% OPHTHALMIC SOL 5 ML BOTTLE OD SCH (14:16)
[2021-10-17] MEDS: AMINO ACIDS/PROTEIN HYDROLYS 30 ML LIQUID.PKT PO SCH (17:54)
[2021-10-17] MEDS: MIRTAZAPINE 15 MG TABLET (FP) PO SCH (21:30)
[2021-10-18] MEDS ORDERED: APIXABAN 5 MG TABLET PO SCH (10:00)
[2021-10-18] MEDS: AMINO ACIDS/PROTEIN HYDROLYS 30 ML LIQUID.PKT PO SCH ×3 (10:15→17:45)
[2021-10-18] MEDS: PANTOPRAZOLE 40 MG TABLET PO SCH ×2 (10:15→21:48)
[2021-10-18] MEDS: TIMOLOL 0.5% OPHTHALMIC SOL 5 ML BOTTLE OD SCH (10:15)
[2021-10-18] MEDS: CARBIDOPA/LEVODOPA 10/100 TABLET (FP) PO SCH ×2 (10:15→22:37)
[2021-10-18 12:48] LABS: HEMATOCRIT 30.2 % (32.4-45.2); HEMOGLOBIN 9.9 GM/dL (10.7-15.3); MCH 30.1 pg (25.7-33.7); MCHC 32.7 g/dl (32.0-36.0); MEAN CELL VOLUME 92.1 fl (80-96); MEAN PLT VOLUME 7.1 fl (7.5-11.1); PLATELET COUNT 487 10^3/uL (134-434); RBC 3.28 M/mm3 (3.60-5.2); RDW 17.9 % (11.6-15.6); WHITE BLOOD COUNT 9.4 K/mm3 (4.0-10.0)
[2021-10-18] MEDS: APIXABAN 2.5 MG TABLET PO SCH ×2 (12:53→21:48)
[2021-10-18] MEDS ORDERED: IRON SUCROSE INJECTION 200 MG in SODIUM CHLORIDE 90 ML IVPB ONE (14:00)
[2021-10-18] MEDS ORDERED: DEXTROSE 5%-WATER - 1,000 ML IV SCH (14:15)
[2021-10-18] MEDS: MIRTAZAPINE 15 MG TABLET (FP) PO SCH (21:48)
[2021-10-18 23:06] LABS: CALCIUM 7.5 mg/dL (8.5-10.1)
[2021-10-18 23:07] LABS: BLOOD UREA NITROGEN 29.9 mg/dL (7-18)
[2021-10-18 23:10] LABS: CREATININE 0.8 mg/dL (0.55-1.3)
[2021-10-19 07:48] LABS: HEMATOCRIT 26.9 % (32.4-45.2); MCH 30.9 pg (25.7-33.7); MCHC 33.6 g/dl (32.0-36.0); MEAN CELL VOLUME 91.9 fl (80-96); MEAN PLT VOLUME 7.3 fl (7.5-11.1); PLATELET COUNT 442 10^3/uL (134-434); RBC 2.93 M/mm3 (3.60-5.2); RDW 17.3 % (11.6-15.6); WHITE BLOOD COUNT 8.2 K/mm3 (4.0-10.0)
[2021-10-19] MEDS: APIXABAN 2.5 MG TABLET PO SCH ×2 (10:37→21:00)
[2021-10-19] MEDS: AMINO ACIDS/PROTEIN HYDROLYS 30 ML LIQUID.PKT PO SCH ×3 (10:37→18:05)
[2021-10-19] MEDS: PANTOPRAZOLE 40 MG TABLET PO SCH ×2 (10:37→21:00)
[2021-10-19] MEDS: CARBIDOPA/LEVODOPA 10/100 TABLET (FP) PO SCH ×2 (10:38→21:01)
[2021-10-19] MEDS: TIMOLOL 0.5% OPHTHALMIC SOL 5 ML BOTTLE OD SCH (10:38)
[2021-10-19] MEDS: FERROUS GLUCONATE 324 MG TAB (FP) PO SCH (12:53)
[2021-10-19] MEDS: MIRTAZAPINE 15 MG TABLET (FP) PO SCH (21:01)
[2021-10-20] MEDS ORDERED: LEVOTHYROXINE NA 50 MCG TABLET (FP) PO SCH (07:00)
[2021-10-20] MEDS: FERROUS GLUCONATE 324 MG TAB (FP) PO SCH ×2 (07:13→16:28)
[2021-10-20 10:14] LABS: HEMATOCRIT 24.7 % (32.4-45.2); HEMOGLOBIN 8.4 GM/dL (10.7-15.3); MCH 30.9 pg (25.7-33.7); MEAN CELL VOLUME 90.6 fl (80-96); PLATELET COUNT 389 10^3/uL (134-434); RBC 2.72 M/mm3 (3.60-5.2); RDW 16.8 % (11.6-15.6); WHITE BLOOD COUNT 15.1 K/mm3 (4.0-10.0)
[2021-10-20 10:31] LABS: CALCIUM 7.2 mg/dL (8.5-10.1)
[2021-10-20 10:32] LABS: BLOOD UREA NITROGEN 34.9 mg/dL (7-18)
[2021-10-20 10:35] LABS: CREATININE 0.5 mg/dL (0.55-1.3)
[2021-10-20] MEDS: AMINO ACIDS/PROTEIN HYDROLYS 30 ML LIQUID.PKT PO SCH ×3 (10:41→18:20)
[2021-10-20] MEDS: PANTOPRAZOLE 40 MG TABLET PO SCH ×2 (10:42→22:12)
[2021-10-20] MEDS: APIXABAN 2.5 MG TABLET PO SCH ×2 (10:42→22:12)
[2021-10-20] MEDS: TIMOLOL 0.5% OPHTHALMIC SOL 5 ML BOTTLE OD SCH (10:42)
[2021-10-20] MEDS: CARBIDOPA/LEVODOPA 10/100 TABLET (FP) PO SCH ×2 (10:42→22:12)
[2021-10-20] MEDS ORDERED: POTASSIUM CHLORIDE TABS 10 MEQ TABLET.ER (FP) PO ONE (12:30)
[2021-10-20] MEDS ORDERED: FUROSEMIDE 40 MG/4 ML INJECTABLE VIAL IVPUSH ONE ×2 (13:45→16:30)
[2021-10-20] MEDS: MIRTAZAPINE 15 MG TABLET (FP) PO SCH (22:12)
[2021-10-21] MEDS: LEVOTHYROXINE NA 100 MCG TABLET (FP) PO SCH (06:22)
[2021-10-21] MEDS: AMINO ACIDS/PROTEIN HYDROLYS 30 ML LIQUID.PKT PO SCH ×3 (10:04→18:52)
[2021-10-21] MEDS: PANTOPRAZOLE 40 MG TABLET PO SCH ×2 (10:04→21:39)
[2021-10-21] MEDS: CARBIDOPA/LEVODOPA 10/100 TABLET (FP) PO SCH ×2 (10:04→21:39)
[2021-10-21] MEDS: APIXABAN 2.5 MG TABLET PO SCH ×2 (10:04→21:39)
[2021-10-21] MEDS: TIMOLOL 0.5% OPHTHALMIC SOL 5 ML BOTTLE OD SCH (10:04)
[2021-10-21] MEDS: FUROSEMIDE 40 MG TABLET (FP) PO SCH (10:04)
[2021-10-21 11:38] LABS: BASO % 0.2 % (0-2.0); EOS % 0.6 % (0-4.5); HEMATOCRIT 27.6 % (32.4-45.2); LYMPH % 8.4 % (8-40); MCH 30.4 pg (25.7-33.7); MCHC 32.8 g/dl (32.0-36.0); MEAN CELL VOLUME 92.7 fl (80-96); MEAN PLT VOLUME 7.7 fl (7.5-11.1); MONO % 5.2 % (3.8-10.2); NEUT % 85.6 % (42.8-82.8); PLATELET COUNT 353 10^3/uL (134-434); RBC 2.97 M/mm3 (3.60-5.2); RDW 17.2 % (11.6-15.6); WHITE BLOOD COUNT 14.4 K/mm3 (4.0-10.0)
[2021-10-21 12:15] LABS: BASO % 0.1 % (0-2.0); EOS % 0.4 % (0-4.5); HEMATOCRIT 29.2 % (32.4-45.2); HEMOGLOBIN 9.5 GM/dL (10.7-15.3); LYMPH % 7.1 % (8-40); MCH 30.5 pg (25.7-33.7); MCHC 32.7 g/dl (32.0-36.0); MEAN CELL VOLUME 93.3 fl (80-96); MEAN PLT VOLUME 7.4 fl (7.5-11.1); MONO % 4.7 % (3.8-10.2); NEUT % 87.7 % (42.8-82.8); PLATELET COUNT 437 10^3/uL (134-434); RBC 3.13 M/mm3 (3.60-5.2); RDW 17.4 % (11.6-15.6); WHITE BLOOD COUNT 16.4 K/mm3 (4.0-10.0)
[2021-10-21 12:19] LABS: CALCIUM 7.2 mg/dL (8.5-10.1)
[2021-10-21 12:20] LABS: ALBUMIN 1.3 g/dl (3.4-5.0); BLOOD UREA NITROGEN 44.8 mg/dL (7-18)
[2021-10-21 12:23] LABS: CREATININE 0.7 mg/dL (0.55-1.3)
[2021-10-21 12:25] LABS: BILIRUBIN,TOTAL 0.4 mg/dL (0.2-1)
[2021-10-21 12:50] LABS: ALBUMIN 1.3 g/dl (3.4-5.0); BILIRUBIN,TOTAL 0.4 mg/dL (0.2-1); BLOOD UREA NITROGEN 44.4 mg/dL (7-18); CALCIUM 7.4 mg/dL (8.5-10.1); CREATININE 0.6 mg/dL (0.55-1.3)
[2021-10-21] MEDS ORDERED: cefTRIAXone SODIUM 1 GM VIAL ONE (15:21)
[2021-10-21] MEDS ORDERED: DEXTROSE 5%-WATER - 50 ML IVPB ONE (15:21)
[2021-10-21] MEDS: CEFTRIAXONE 1 GM in DEXTROSE 5%-WATER - 50 ML IVPB SCH (15:32)
[2021-10-21] MEDS: FERROUS GLUCONATE 324 MG TAB (FP) PO SCH (15:32)
[2021-10-21] MEDS: MIRTAZAPINE 15 MG TABLET (FP) PO SCH (21:39)
[2021-10-22] MEDS: LEVOTHYROXINE NA 100 MCG TABLET (FP) PO SCH (06:17)
[2021-10-22 08:59] LABS: BASO % 0.1 % (0-2.0); EOS % 0.3 % (0-4.5); HEMATOCRIT 26.7 % (32.4-45.2); HEMOGLOBIN 8.7 GM/dL (10.7-15.3); MCH 30.4 pg (25.7-33.7); MCHC 32.7 g/dl (32.0-36.0); MEAN CELL VOLUME 92.9 fl (80-96); MEAN PLT VOLUME 7.6 fl (7.5-11.1); MONO % 7.5 % (3.8-10.2); NEUT % 79.1 % (42.8-82.8); PLATELET COUNT 408 10^3/uL (134-434); RBC 2.87 M/mm3 (3.60-5.2); RDW 17.3 % (11.6-15.6); WHITE BLOOD COUNT 13.5 K/mm3 (4.0-10.0)
[2021-10-22] MEDS ORDERED: DEXTROSE 5%-WATER - 50 ML IVPB ONE (10:22)
[2021-10-22] MEDS ORDERED: cefTRIAXone SODIUM 1 GM VIAL ONE (10:22)
[2021-10-22] MEDS: CEFTRIAXONE 1 GM in DEXTROSE 5%-WATER - 50 ML IVPB SCH (10:25)
[2021-10-22] MEDS: APIXABAN 2.5 MG TABLET PO SCH ×2 (10:25→22:28)
[2021-10-22] MEDS: AMINO ACIDS/PROTEIN HYDROLYS 30 ML LIQUID.PKT PO SCH ×3 (10:25→18:19)
[2021-10-22] MEDS: FUROSEMIDE 40 MG TABLET (FP) PO SCH (10:25)
[2021-10-22] MEDS: PANTOPRAZOLE 40 MG TABLET PO SCH ×2 (10:25→22:27)
[2021-10-22] MEDS: CARBIDOPA/LEVODOPA 10/100 TABLET (FP) PO SCH ×2 (10:26→22:28)
[2021-10-22] MEDS: TIMOLOL 0.5% OPHTHALMIC SOL 5 ML BOTTLE OD SCH (10:31)
[2021-10-22] MEDS: FERROUS GLUCONATE 324 MG TAB (FP) PO SCH (14:47)
[2021-10-22] MEDS ORDERED: FUROSEMIDE 20 MG TABLET (FP) PO SCH (22:06)
[2021-10-22] MEDS: MIRTAZAPINE 15 MG TABLET (FP) PO SCH (22:27)
[2021-10-23] MEDS: LEVOTHYROXINE NA 100 MCG TABLET (FP) PO SCH (06:12)
[2021-10-23 07:33] LABS: HEMATOCRIT 24.2 % (32.4-45.2); HEMOGLOBIN 8.1 GM/dL (10.7-15.3); MCH 30.9 pg (25.7-33.7); MCHC 33.4 g/dl (32.0-36.0); MEAN CELL VOLUME 92.6 fl (80-96); MEAN PLT VOLUME 7.9 fl (7.5-11.1); PLATELET COUNT 439 10^3/uL (134-434); RBC 2.61 M/mm3 (3.60-5.2); WHITE BLOOD COUNT 10.2 K/mm3 (4.0-10.0)
[2021-10-23] MEDS ORDERED: cefTRIAXone SODIUM 1 GM VIAL ONE (08:26)
[2021-10-23] MEDS ORDERED: DEXTROSE 5%-WATER - 50 ML IVPB ONE (08:27)
[2021-10-23] MEDS: APIXABAN 2.5 MG TABLET PO SCH (09:18)
[2021-10-23] MEDS: PANTOPRAZOLE 40 MG TABLET PO SCH (09:18)
[2021-10-23] MEDS: CARBIDOPA/LEVODOPA 10/100 TABLET (FP) PO SCH (09:18)
[2021-10-23] MEDS: AMINO ACIDS/PROTEIN HYDROLYS 30 ML LIQUID.PKT PO SCH ×2 (09:18→17:32)
[2021-10-23] MEDS: CEFTRIAXONE 1 GM in DEXTROSE 5%-WATER - 50 ML IVPB SCH (09:19)
[2021-10-23] MEDS: TIMOLOL 0.5% OPHTHALMIC SOL 5 ML BOTTLE OD SCH (09:20)
[2021-10-23] MEDS ORDERED: SIMBRINZA OD SCH (10:00)
[2021-10-23] MEDS: FERROUS GLUCONATE 324 MG TAB (FP) PO SCH (13:51)
[2021-10-23 14:21] VITALS: BP 108/55; PULSE 67; TEMP 97.2
[2021-10-23] MEDS ORDERED: RHOPRESSA 0.02% OD SCH (22:00)
[2021-10-23] MEDS ORDERED: OPTHALMIC OD SCH (22:00)
== END 2021-10-23 19:00 | DRG 377 ==
LOC: JER 13:15 → JERBED 17:59 → J4S 10-16 22:37
PROVIDERS: ADMIT Hospitalist; ATTEND Family Medicine
PROC: 30233N1 Transfusion of Nonautologous Red Blood Cells into Peripheral Vein, Percutaneous Approach (ICD-10-PCS; principal; 2021-10-15)
PROC: 4A00X4Z Measurement of Central Nervous Electrical Activity, External Approach (ICD-10-PCS; 2021-10-18)
DX: K92.2 Gastrointestinal hemorrhage, unspecified (principal); E43 Unspecified severe protein-calorie malnutrition; I63.9 Cerebral infarction, unspecified; J18.9 Pneumonia, unspecified organism; I50.32 Chronic diastolic (congestive) heart failure; Z68.1 Body mass index [BMI] 19.9 or less, adult; R64 Cachexia; E87.0 Hyperosmolality and hypernatremia; I82.5Z2 Chronic embolism and thrombosis of unspecified deep veins of left distal lower extremity; J98.11 Atelectasis; D64.9 Anemia, unspecified; G20 Parkinson's disease; E03.9 Hypothyroidism, unspecified; F02.80 Dementia in other diseases classified elsewhere, unspecified severity, without behavioral disturbance, psychotic disturbance, mood disturbance, and anxiety; H54.40 Blindness, one eye, unspecified eye; H91.93 Unspecified hearing loss, bilateral; I11.0 Hypertensive heart disease with heart failure; R50.9 Fever, unspecified; E88.09 Other disorders of plasma-protein metabolism, not elsewhere classified; I25.10 Atherosclerotic heart disease of native coronary artery without angina pectoris; I95.9 Hypotension, unspecified; D72.829 Elevated white blood cell count, unspecified; R62.7 Adult failure to thrive; R91.8 Other nonspecific abnormal finding of lung field; R00.1 Bradycardia, unspecified; F41.9 Anxiety disorder, unspecified; R19.5 Other fecal abnormalities
CPT/HCPCS: 36415; 36430; 70450-TC; 71045-TC-FY; 71250-TC; 80048; 80053; 81003; 82272; 82607; 82728; 83036; 83540; 83550; 83735; 83880; 84100; 84439; 84443; 84484; 85025; 85027; 85610; 85730; 86140; 86850; 86900; 86901; 86922; 87040; 87086; 93005; 93010; 93970-TC; 95816; 99285-25; C9803-CS; J1756; P9058; U0003; U0005

== ENCOUNTER 2021-11-07 14:49 | Inpatient (IN) | payer OTHER, BC ==
[2021-11-07 15:41] VITALS: BMI 19.5
[2021-11-07 16:52] LABS: BASO % 0.3 % (0-2.0); EOS % 0.3 % (0-4.5); HEMOGLOBIN 7.2 GM/dL (10.7-15.3); LYMPH % 14.2 % (8-40); MCH 30.4 pg (25.7-33.7); MCHC 31.2 g/dl (32.0-36.0); MEAN CELL VOLUME 97.6 fl (80-96); MEAN PLT VOLUME 7.5 fl (7.5-11.1); MONO % 6.9 % (3.8-10.2); NEUT % 78.3 % (42.8-82.8); PLATELET COUNT 479 10^3/uL (134-434); RBC 2.35 M/mm3 (3.60-5.2); RDW 20.1 % (11.6-15.6); WHITE BLOOD COUNT 7.2 K/mm3 (4.0-10.0)
[2021-11-07 16:56] LABS: INR 1.78 (0.83-1.09); PROTHROMBIN TIME (PATIENT) 20.6 SEC (9.7-13.0)
[2021-11-07 16:59] LABS: ACTIVATED PTT 35.7 SECONDS (25.2-36.5)
[2021-11-07 17:21] LABS: ALBUMIN 1.7 g/dl (3.4-5.0); BLOOD UREA NITROGEN 24.7 mg/dL (7-18); CALCIUM 8.5 mg/dL (8.5-10.1)
[2021-11-07 17:24] LABS: CREATININE 0.8 mg/dL (0.55-1.3)
[2021-11-07 17:26] LABS: BILIRUBIN,TOTAL 0.3 mg/dL (0.2-1); TOT PROT 4.7 g/dl (6.4-8.2)
[2021-11-08] MEDS ORDERED: PANTOPRAZOLE SODIUM 40 MG in SODIUM CHLORIDE 100 ML IVPUSH SCH (10:00)
[2021-11-08] MEDS: PANTOPRAZOLE SODIUM 40 MG VIAL IVPUSH SCH ×2 (10:43→21:40)
[2021-11-08 12:23] LABS: BASO % 0.5 % (0-2.0); EOS % 0.6 % (0-4.5); HEMATOCRIT 26.2 % (32.4-45.2); HEMOGLOBIN 8.6 GM/dL (10.7-15.3); LYMPH % 15.8 % (8-40); MCH 30.9 pg (25.7-33.7); MCHC 32.8 g/dl (32.0-36.0); MEAN CELL VOLUME 94.3 fl (80-96); MEAN PLT VOLUME 7.6 fl (7.5-11.1); MONO % 8.9 % (3.8-10.2); NEUT % 74.2 % (42.8-82.8); PLATELET COUNT 421 10^3/uL (134-434); RBC 2.78 M/mm3 (3.60-5.2); RDW 19.5 % (11.6-15.6); WHITE BLOOD COUNT 7.6 K/mm3 (4.0-10.0)
[2021-11-08 12:53] LABS: BLOOD UREA NITROGEN 23.8 mg/dL (7-18)
[2021-11-08 12:54] LABS: CALCIUM 7.7 mg/dL (8.5-10.1)
[2021-11-08 12:56] LABS: CREATININE 0.7 mg/dL (0.55-1.3)
[2021-11-08 12:57] LABS: BILIRUBIN,TOTAL 0.7 mg/dL (0.2-1); TOT PROT 4.4 g/dl (6.4-8.2)
[2021-11-08 13:20] LABS: ALBUMIN 1.3 g/dl (3.4-5.0)
[2021-11-08] MEDS ORDERED: DEXTROSE 5%-WATER - 1,000 ML IV SCH (14:30)
[2021-11-09] MEDS: PANTOPRAZOLE SODIUM 40 MG VIAL IVPUSH SCH ×2 (10:09→21:02)
[2021-11-09] MEDS: DEXTROSE 5%-WATER - 1,000 ML IV SCH (13:50)
[2021-11-09] MEDS ORDERED: ACETAMINOPHEN 650 MG/20.3 ML ORAL SOLUTION (CUPS) PO PRN (14:15)
[2021-11-09 15:27] LABS: HEMATOCRIT 30.5 % (32.4-45.2); HEMOGLOBIN 10.1 GM/dL (10.7-15.3); MCH 31.3 pg (25.7-33.7); MCHC 33.1 g/dl (32.0-36.0); MEAN CELL VOLUME 94.4 fl (80-96); MEAN PLT VOLUME 7.5 fl (7.5-11.1); PLATELET COUNT 442 10^3/uL (134-434); RBC 3.23 M/mm3 (3.60-5.2); WHITE BLOOD COUNT 8.8 K/mm3 (4.0-10.0)
[2021-11-09 15:46] LABS: CALCIUM 7.2 mg/dL (8.5-10.1)
[2021-11-09 15:47] LABS: BLOOD UREA NITROGEN 18.4 mg/dL (7-18)
[2021-11-09 15:50] LABS: CREATININE 0.7 mg/dL (0.55-1.3)
[2021-11-10] MEDS: LEVOTHYROXINE NA 100 MCG TABLET (FP) PO SCH (06:39)
[2021-11-10] MEDS: DEXTROSE 5%-WATER - 1,000 ML IV SCH (06:39)
[2021-11-10] MEDS ORDERED: ENOXAPARIN NA (PORCINE) 40 MG/0.4 ML DISP.SYRIN SQ SCH (10:00)
[2021-11-10] MEDS ORDERED: CARBIDOPA/LEVODOPA 10/100 TABLET (FP) PO SCH (10:00)
[2021-11-10 10:02] LABS: HEMATOCRIT 25.4 % (32.4-45.2); HEMOGLOBIN 8.4 GM/dL (10.7-15.3); MCH 30.6 pg (25.7-33.7); MCHC 32.8 g/dl (32.0-36.0); MEAN CELL VOLUME 93.3 fl (80-96); MEAN PLT VOLUME 7.5 fl (7.5-11.1); PLATELET COUNT 458 10^3/uL (134-434); RBC 2.73 M/mm3 (3.60-5.2); RDW 17.7 % (11.6-15.6); WHITE BLOOD COUNT 8.4 K/mm3 (4.0-10.0)
[2021-11-10] MEDS: MULTIVITAMINS (DAILY MVI) TABLET (FP) PO SCH (10:09)
[2021-11-10] MEDS: AMINO ACIDS/PROTEIN HYDROLYS 30 ML LIQUID.PKT PO SCH (10:09)
[2021-11-10] MEDS: PANTOPRAZOLE SODIUM 40 MG VIAL IVPUSH SCH ×2 (10:09→21:50)
[2021-11-10 10:11] LABS: INR 1.37 (0.83-1.09); PROTHROMBIN TIME (PATIENT) 15.8 SEC (9.7-13.0)
[2021-11-10 10:13] LABS: ACTIVATED PTT 31.8 SECONDS (25.2-36.5)
[2021-11-10 10:29] LABS: ALBUMIN 1.4 g/dl (3.4-5.0); BLOOD UREA NITROGEN 18.7 mg/dL (7-18); CALCIUM 7.7 mg/dL (8.5-10.1)
[2021-11-10 10:32] LABS: CREATININE 0.7 mg/dL (0.55-1.3)
[2021-11-10 10:34] LABS: BILIRUBIN,TOTAL 0.9 mg/dL (0.2-1)
[2021-11-10 10:35] LABS: TOT PROT 4.2 g/dl (6.4-8.2)
[2021-11-10] MEDS ORDERED: DEXTROSE 5%-WATER - 1,000 ML IV SCH (12:11)
[2021-11-10 17:21] LABS: URINE APPEARANCE CLEAR; URINE BILIRUBIN NEGATIVE (NEGATIVE); URINE COLOR DK YELLOW; URINE GLUCOSE (UA) NEGATIVE (NEGATIVE); URINE KETONE NEGATIVE (NEGATIVE); URINE LEUK ESTERASE NEGATIVE (NEGATIVE); URINE NITRITE NEGATIVE (NEGATIVE); URINE PROTEIN NEGATIVE (NEGATIVE); URINE UROBILINOGEN 0.2 mg/dL (0.2-1.0)
[2021-11-10] MEDS: ENOXAPARIN NA (PORCINE) 40 MG/0.4 ML DISP.SYRIN SQ SCH (18:14)
[2021-11-10] MEDS: MIRTAZAPINE 15 MG TABLET (FP) PO SCH (21:50)
[2021-11-10] MEDS: MEMANTINE HCL 5 MG TABLET (UD) PO SCH (21:50)
[2021-11-11] MEDS: LEVOTHYROXINE NA 100 MCG TABLET (FP) PO SCH (06:22)
[2021-11-11 08:07] LABS: BLOOD UREA NITROGEN 19.1 mg/dL (7-18); CALCIUM 7.1 mg/dL (8.5-10.1)
[2021-11-11 08:10] LABS: CREATININE 0.6 mg/dL (0.55-1.3)
[2021-11-11 08:12] LABS: BILIRUBIN,TOTAL 0.6 mg/dL (0.2-1); TOT PROT 3.8 g/dl (6.4-8.2)
[2021-11-11 08:18] LABS: ALBUMIN 1.1 g/dl (3.4-5.0)
[2021-11-11 08:32] LABS: HEMATOCRIT 22.5 % (32.4-45.2); HEMOGLOBIN 7.6 GM/dL (10.7-15.3); MCH 31.4 pg (25.7-33.7); MEAN CELL VOLUME 92.3 fl (80-96); MEAN PLT VOLUME 7.6 fl (7.5-11.1); PLATELET COUNT 428 10^3/uL (134-434); RBC 2.43 M/mm3 (3.60-5.2); RDW 17.4 % (11.6-15.6); WHITE BLOOD COUNT 7.5 K/mm3 (4.0-10.0)
[2021-11-11] MEDS: MEMANTINE HCL 5 MG TABLET (UD) PO SCH ×2 (10:20→22:36)
[2021-11-11] MEDS: PANTOPRAZOLE SODIUM 40 MG VIAL IVPUSH SCH ×2 (10:20→22:36)
[2021-11-11] MEDS: ENOXAPARIN NA (PORCINE) 40 MG/0.4 ML DISP.SYRIN SQ SCH (10:20)
[2021-11-11] MEDS: AMINO ACIDS/PROTEIN HYDROLYS 30 ML LIQUID.PKT PO SCH (10:20)
[2021-11-11] MEDS: MULTIVITAMINS (DAILY MVI) TABLET (FP) PO SCH (10:20)
[2021-11-11] MEDS: MIRTAZAPINE 15 MG TABLET (FP) PO SCH (22:36)
[2021-11-12] MEDS: AMINO ACIDS/PROTEIN HYDROLYS 30 ML LIQUID.PKT PO SCH (08:34)
[2021-11-12 09:15] LABS: ALBUMIN 1.4 g/dl (3.4-5.0); BILIRUBIN,TOTAL 1.6 mg/dL (0.2-1); CALCIUM 7.5 mg/dL (8.5-10.1); CREATININE 0.5 mg/dL (0.55-1.3); TOT PROT 4.2 g/dl (6.4-8.2)
[2021-11-12] MEDS: PANTOPRAZOLE SODIUM 40 MG VIAL IVPUSH SCH (09:46)
[2021-11-12] MEDS: ENOXAPARIN NA (PORCINE) 40 MG/0.4 ML DISP.SYRIN SQ SCH (09:46)
[2021-11-12 13:26] LABS: BASO % 0.2 % (0-2.0); EOS % 0.1 % (0-4.5); HEMATOCRIT 34.9 % (32.4-45.2); HEMOGLOBIN 12.2 GM/dL (10.7-15.3); LYMPH % 8.6 % (8-40); MCH 31.1 pg (25.7-33.7); MCHC 34.8 g/dl (32.0-36.0); MEAN CELL VOLUME 89.2 fl (80-96); MEAN PLT VOLUME 7.6 fl (7.5-11.1); MONO % 8.2 % (3.8-10.2); NEUT % 82.9 % (42.8-82.8); PLATELET COUNT 446 10^3/uL (134-434); RBC 3.92 M/mm3 (3.60-5.2); RDW 16.6 % (11.6-15.6); WHITE BLOOD COUNT 9.3 K/mm3 (4.0-10.0)
[2021-11-12] MEDS: MULTIVITAMINS (DAILY MVI) TABLET (FP) PO SCH (16:17)
[2021-11-12] MEDS: MEMANTINE HCL 5 MG TABLET (UD) PO SCH ×2 (16:17→21:12)
[2021-11-12] MEDS: LEVOTHYROXINE NA 100 MCG TABLET (FP) PO SCH (16:17)
[2021-11-12] MEDS: MIRTAZAPINE 15 MG TABLET (FP) PO SCH (21:12)
[2021-11-12] MEDS: PANTOPRAZOLE 40 MG TABLET PO SCH (21:16)
[2021-11-13] MEDS: LEVOTHYROXINE NA 100 MCG TABLET (FP) PO SCH (06:35)
[2021-11-13 07:48] LABS: ALBUMIN 1.4 g/dl (3.4-5.0); CALCIUM 7.3 mg/dL (8.5-10.1)
[2021-11-13 07:51] LABS: CREATININE 0.5 mg/dL (0.55-1.3)
[2021-11-13 07:53] LABS: BILIRUBIN,TOTAL 1.7 mg/dL (0.2-1); TOT PROT 3.9 g/dl (6.4-8.2)
[2021-11-13] MEDS ORDERED: DEXTROSE 5%-WATER - 1,000 ML IV SCH (09:30)
[2021-11-13] MEDS: PANTOPRAZOLE 40 MG TABLET PO SCH ×2 (10:17→21:45)
[2021-11-13] MEDS: MEMANTINE HCL 5 MG TABLET (UD) PO SCH ×2 (10:17→21:45)
[2021-11-13] MEDS: AMINO ACIDS/PROTEIN HYDROLYS 30 ML LIQUID.PKT PO SCH ×2 (10:17→10:24)
[2021-11-13] MEDS: MULTIVITAMINS (DAILY MVI) TABLET (FP) PO SCH (10:17)
[2021-11-13 11:26] LABS: HEMOGLOBIN 11.8 GM/dL (10.7-15.3); MCH 30.3 pg (25.7-33.7); MCHC 33.8 g/dl (32.0-36.0); MEAN CELL VOLUME 89.5 fl (80-96); MEAN PLT VOLUME 7.3 fl (7.5-11.1); PLATELET COUNT 484 10^3/uL (134-434); RBC 3.92 M/mm3 (3.60-5.2); RDW 16.5 % (11.6-15.6); WHITE BLOOD COUNT 7.9 K/mm3 (4.0-10.0)
[2021-11-13] MEDS ORDERED: HEPARIN NA (PORCINE) 5,000 UNITS/ML 1ML VIAL ONE (13:30)
[2021-11-13] MEDS ORDERED: POTASSIUM CHLORIDE ORAL LIQUID 20 MEQ/15 ML PO ONE ×2 (13:30→15:24)
[2021-11-13] MEDS ORDERED: LIDOCAINE HCL 1%, 10 MG/ML (20ML VIAL) ONE (14:04)
[2021-11-13] MEDS ORDERED: PROPOFOL 20 ML ONE ×2 (14:25)
[2021-11-13] MEDS ORDERED: KETAMINE HCL 200 MG/20 ML VIAL ONE (14:25)
[2021-11-13] MEDS ORDERED: LIDOCAINE HCL/PF 2% SDV 5ML VIAL ONE (14:25)
[2021-11-13] MEDS ORDERED: MIDAZOLAM HCL 2 MG/2 ML SINGLE DOSE VIAL ONE (14:28)
[2021-11-13] MEDS ORDERED: LIDOCAINE HCL 1%, 10 MG/ML (20ML VIAL) INF ONE (14:48)
[2021-11-13] MEDS ORDERED: ACETAMINOPHEN 650 MG/20.3 ML ORAL SOLUTION (CUPS) PO PRN (15:24)
[2021-11-13] MEDS ORDERED: ONDANSETRON 4 MG/2 ML VIAL IVPUSH PRN (15:45)
[2021-11-13] MEDS ORDERED: MIRTAZAPINE 15 MG TABLET (FP) PO SCH (22:00)
[2021-11-14] MEDS ORDERED: LEVOTHYROXINE NA 100 MCG TABLET (FP) PO SCH (07:00)
[2021-11-14 07:42] LABS: BLOOD UREA NITROGEN 15.4 mg/dL (7-18); CALCIUM 7.7 mg/dL (8.5-10.1)
[2021-11-14 07:45] LABS: CREATININE 0.6 mg/dL (0.55-1.3); PHOSPHOROUS 2.5 mg/dL (2.5-4.9)
[2021-11-14] MEDS ORDERED: AMINO ACIDS/PROTEIN HYDROLYS 30 ML LIQUID.PKT PO SCH (08:00)
[2021-11-14] MEDS ORDERED: POTASSIUM CHLORIDE ORAL LIQUID 20 MEQ/15 ML PO ONE ×2 (08:29→12:15)
[2021-11-14] MEDS: PANTOPRAZOLE 40 MG TABLET PO SCH ×2 (09:18→22:12)
[2021-11-14] MEDS: MEMANTINE HCL 5 MG TABLET (UD) PO SCH ×2 (09:18→22:13)
[2021-11-14] MEDS ORDERED: MULTIVITAMINS (DAILY MVI) TABLET (FP) PO SCH (10:00)
[2021-11-14] MEDS ORDERED: POTASSIUM CHLORIDE TABS 10 MEQ TABLET.ER (FP) PO SCH ×2 (10:00→22:00)
[2021-11-14] MEDS ORDERED: SODIUM BICARBONATE 650 MG TABLET PO SCH (10:45)
[2021-11-14] MEDS ORDERED: ACETAMINOPHEN 650 MG/20.3 ML ORAL SOLUTION (CUPS) PO PRN (17:18)
[2021-11-14] MEDS ORDERED: MIRTAZAPINE 15 MG TABLET (FP) PO SCH (22:00)
[2021-11-14] MEDS: POTASSIUM CHLORIDE ORAL LIQUID 20 MEQ/15 ML PO SCH (22:12)
[2021-11-15] MEDS ORDERED: LEVOTHYROXINE NA 100 MCG TABLET (FP) PO SCH (07:00)
[2021-11-15] MEDS ORDERED: AMINO ACIDS/PROTEIN HYDROLYS 30 ML LIQUID.PKT PO SCH (08:00)
[2021-11-15] MEDS ORDERED: MULTIVITAMINS (DAILY MVI) TABLET (FP) PO SCH (10:00)
[2021-11-15] MEDS ORDERED: SODIUM BICARBONATE 650 MG TABLET PO SCH (10:00)
[2021-11-15] MEDS: PANTOPRAZOLE 40 MG TABLET PO SCH (10:37)
[2021-11-15] MEDS: POTASSIUM CHLORIDE ORAL LIQUID 20 MEQ/15 ML PO SCH (10:37)
[2021-11-15] MEDS: MEMANTINE HCL 5 MG TABLET (UD) PO SCH (10:39)
[2021-11-15] MEDS ORDERED: POTASSIUM CHLORIDE ORAL LIQUID 20 MEQ/15 ML PO SCH (12:07)
[2021-11-15 15:43] VITALS: BP 141/81; PULSE 95; TEMP 98.4
== END 2021-11-15 20:55 | DRG 377 ==
LOC: JER 14:49 → JERBED 18:53 → J4W 23:42 → OBSVTOIN 11-10 16:55 → J8W 11-14 17:06
PROVIDERS: ADMIT Family Medicine; ATTEND Family Medicine
PROC: 06H03DZ Insertion of Intraluminal Device into Inferior Vena Cava, Percutaneous Approach (ICD-10-PCS; principal; 2021-11-10)
DX: K92.2 Gastrointestinal hemorrhage, unspecified (principal); E43 Unspecified severe protein-calorie malnutrition; I50.32 Chronic diastolic (congestive) heart failure; R64 Cachexia; Z68.1 Body mass index [BMI] 19.9 or less, adult; E87.0 Hyperosmolality and hypernatremia; N17.9 Acute kidney failure, unspecified; R55 Syncope and collapse; D64.9 Anemia, unspecified; F03.90 Unspecified dementia, unspecified severity, without behavioral disturbance, psychotic disturbance, mood disturbance, and anxiety; Z86.718 Personal history of other venous thrombosis and embolism; I11.0 Hypertensive heart disease with heart failure; R19.5 Other fecal abnormalities; E03.9 Hypothyroidism, unspecified; E88.09 Other disorders of plasma-protein metabolism, not elsewhere classified; R62.7 Adult failure to thrive; E87.6 Hypokalemia; E83.51 Hypocalcemia; Z79.01 Long term (current) use of anticoagulants
CPT/HCPCS: 36415; 36430; 71045-TC-FY; 76000-TC-FY; 76705-TC; 76775-TC; 80048; 80053; 80061; 81003; 82272; 82728; 82962; 83540; 83550; 83735; 84100; 84439; 84443; 84484; 85025; 85027; 85384; 85610; 85730; 86850; 86900; 86901; 86922; 87086; 87804; 93005; 93010; 94760; 99285-25; C9803-CS; G0378; J1644; P9058; U0003; U0005

== ENCOUNTER 2021-11-17 21:12 | Inpatient (IN) | payer OTHER, BC ==
[2021-11-17 21:29] VITALS: BMI 17.6
[2021-11-17] MEDS ORDERED: ATORVASTATIN CA 80 MG TABLET (FP) PO ONE (22:22)
[2021-11-17] MEDS ORDERED: ASPIRIN 325 MG TABLET PO ONE (22:22)
[2021-11-17 22:26] LABS: VENOUS O2 SATURATION 36.3 % (70-80); VENOUS PCO2 29.1 mmHg (38-52); VENOUS PH 7.366 (7.310-7.410)
[2021-11-17 22:32] LABS: HEMATOCRIT 27.1 % (32.4-45.2); HEMOGLOBIN 9.1 GM/dL (10.7-15.3); MCH 30.9 pg (25.7-33.7); MCHC 33.5 g/dl (32.0-36.0); MEAN CELL VOLUME 92.4 fl (80-96); MEAN PLT VOLUME 6.9 fl (7.5-11.1); PLATELET COUNT 184 10^3/uL (134-434); RBC 2.93 M/mm3 (3.60-5.2); RDW 16.8 % (11.6-15.6); WHITE BLOOD COUNT 10.9 K/mm3 (4.0-10.0)
[2021-11-17 22:42] LABS: INR 1.88 (0.83-1.09); PROTHROMBIN TIME (PATIENT) 21.7 SEC (9.7-13.0)
[2021-11-17 22:45] LABS: ACTIVATED PTT 38.2 SECONDS (25.2-36.5)
[2021-11-17 22:49] LABS: CHLORIDE 119 mmol/L (98-107); SODIUM 146 mmol/L (136-145)
[2021-11-17 22:52] LABS: ANION GAP 9 MMOL/L (8-16); BLOOD UREA NITROGEN 30.3 mg/dL (7-18); CO2 18 mmol/L (21-32); GLUCOSE,RANDOM 82 mg/dL (74-106)
[2021-11-17 22:55] LABS: CHOLESTEROL 93 mg/dL (50-200); CREATININE 1.3 mg/dL (0.55-1.3); SGPT/ALT 408 U/L (13-61); TRIGLYCERIDES 80 mg/dL (0-150)
[2021-11-17 22:56] LABS: BILIRUBIN,TOTAL 0.8 mg/dL (0.2-1); LDL CHOLESTEROL (ONLY SJRH) 43 mg/dL (5-100); TOT PROT 3.7 g/dl (6.4-8.2)
[2021-11-17 22:57] LABS: ALK PHOS 141 U/L (45-117); HDL CHOLESTEROL 43 mg/dL (40-60)
[2021-11-17 23:12] LABS: CALCIUM 6.8 mg/dL (8.5-10.1); SGOT/AST 2796 U/L (15-37)
[2021-11-17 23:26] LABS: ANISOCYTOSIS 0; MACROCYTOSIS 1+; PLATELET ESTIMATE NORMAL
[2021-11-17] MEDS ORDERED: SODIUM CHLORIDE 0.9% 500 ML INFUS.BAG IV ONE (23:44)
[2021-11-18 01:45] LABS: URINE APPEARANCE CLOUDY; URINE BILIRUBIN NEGATIVE (NEGATIVE); URINE COLOR YELLOW; URINE GLUCOSE (UA) NEGATIVE (NEGATIVE); URINE KETONE NEGATIVE (NEGATIVE)
[2021-11-18 01:46] LABS: URINE PROTEIN TRACE (NEGATIVE); URINE UROBILINOGEN 0.2 mg/dL (0.2-1.0)
[2021-11-18 01:47] LABS: URINE LEUK ESTERASE 1+ (NEGATIVE); URINE NITRITE NEGATIVE (NEGATIVE); URINE RBC 33.3 /uL (0-23.9); URINE WBC 1889.9 /uL (0-25.8)
[2021-11-18 01:49] LABS: HYALINE CASTS 2+ /uL (0-3.1)
[2021-11-18] MEDS ORDERED: SODIUM CHLORIDE 0.9% 500 ML INFUS.BAG IV ONE (01:55)
[2021-11-18] MEDS ORDERED: HYDROCORTISONE SOD SUCCINATE 100 MG/2 ML VIAL IVPUSH ONE (01:58)
[2021-11-18] MEDS ORDERED: CEFTRIAXONE 1 GM in DEXTROSE 5%-WATER - 100 ML IVPB ONE (01:59)
[2021-11-18] MEDS ORDERED: PIPERACILLIN/TAZOB 4.5 GM 4.5 GM in DEXTROSE 5%-WATER 100 ML IVPB ONE (02:02)
[2021-11-18] MEDS ORDERED: HYDROCORTISONE SOD SUCCINATE 100 MG/2 ML VIAL ONE (02:24)
[2021-11-18] MEDS ORDERED: PIPERACILLIN/TAZOB 4.5 GM 4.5 GM/100 ML BAG IVPB ONE (02:24)
[2021-11-18] MEDS ORDERED: LORazepam 2 MG/ML SDV VIAL IVPUSH ONE (03:13)
[2021-11-18] MEDS ORDERED: SODIUM CHLORIDE 1,000 ML IV SCH (03:15)
[2021-11-18] MEDS: SODIUM CHLORIDE 1,000 ML IV SCH (03:29)
[2021-11-18] MEDS ORDERED: VANCOMYCIN/WATER FOR INJ (PEG) 750 MG/150 ML BAG IVPB ONE (07:30)
[2021-11-18 08:15] LABS: HEMATOCRIT 32.4 % (32.4-45.2); HEMOGLOBIN 10.4 GM/dL (10.7-15.3); MCH 30.2 pg (25.7-33.7); MCHC 32.2 g/dl (32.0-36.0); MEAN CELL VOLUME 93.9 fl (80-96); MEAN PLT VOLUME 7.7 fl (7.5-11.1); PLATELET COUNT 211 10^3/uL (134-434); RBC 3.45 M/mm3 (3.60-5.2); RDW 16.8 % (11.6-15.6); WHITE BLOOD COUNT 13.1 K/mm3 (4.0-10.0)
[2021-11-18 08:30] LABS: CHLORIDE 122 mmol/L (98-107); SODIUM 149 mmol/L (136-145)
[2021-11-18 08:33] LABS: ANION GAP 13 MMOL/L (8-16); CO2 14 mmol/L (21-32); GLUCOSE,RANDOM 81 mg/dL (74-106)
[2021-11-18 08:34] LABS: BLOOD UREA NITROGEN 31.8 mg/dL (7-18)
[2021-11-18 08:36] LABS: CREATININE 1.2 mg/dL (0.55-1.3); SGPT/ALT 645 U/L (13-61)
[2021-11-18 08:38] LABS: TOT PROT 4.4 g/dl (6.4-8.2)
[2021-11-18 08:39] LABS: ALK PHOS 169 U/L (45-117)
[2021-11-18 08:56] LABS: ANISOCYTOSIS 0; HELMET CELLS 0; HOWELL-JOLLY BODIES 0; MACROCYTOSIS 0; OVALOCYTE 0; ROULEAU 0; SICKELED CELLS 0; TARGET CELLS 0; TEAR DROP CELLS 0; TOXIC GRANULATION 0
[2021-11-18 08:57] LABS: ALBUMIN 1.3 g/dl (3.4-5.0); CALCIUM 6.5 mg/dL (8.5-10.1); SGOT/AST 2774 U/L (15-37)
[2021-11-18] MEDS: PIPERACILLIN/TAZOB 2.25 GM 2.25 GM in DEXTROSE 5%-WATER - 50 ML IVPB SCH ×3 (09:00→21:44)
[2021-11-18] MEDS ORDERED: PIPERACILLIN/TAZOB 2.25 GM 2.25 GM in DEXTROSE 5%-WATER - 50 ML IVPB SCH (09:00)
[2021-11-18] MEDS: LEVOTHYROXINE SODIUM 100 MCG VIAL IVPUSH SCH (09:18)
[2021-11-18] MEDS ORDERED: PIPERACILLIN/TAZOB 2.25 GM 2.25 GM/50 ML BAG IVPB ONE ×2 (09:20→14:23)
[2021-11-18] MEDS: TIMOLOL 0.5% OPHTHALMIC SOL 5 ML BOTTLE OD SCH (11:30)
[2021-11-18] MEDS ORDERED: PIPERACILLIN/TAZOBACTAM 2.25 GM VIAL IVPB ONE (21:20)
[2021-11-18] MEDS ORDERED: DEXTROSE 5%-WATER - 50 ML IVPB ONE (21:21)
[2021-11-19] MEDS ORDERED: PIPERACILLIN/TAZOBACTAM 2.25 GM VIAL IVPB ONE (02:22)
[2021-11-19] MEDS ORDERED: DEXTROSE 5%-WATER - 50 ML IVPB ONE (02:22)
[2021-11-19] MEDS: PIPERACILLIN/TAZOB 2.25 GM 2.25 GM in DEXTROSE 5%-WATER - 50 ML IVPB SCH (02:26)
[2021-11-19] MEDS: SODIUM CHLORIDE 1,000 ML IV SCH ×3 (02:28→21:37)
[2021-11-19] MEDS ORDERED: SODIUM CHLORIDE 250 ML IV STA (04:52)
[2021-11-19 06:51] LABS: HEMATOCRIT 33.5 % (32.4-45.2); HEMOGLOBIN 10.5 GM/dL (10.7-15.3); MCH 30.2 pg (25.7-33.7); MCHC 31.2 g/dl (32.0-36.0); MEAN CELL VOLUME 96.7 fl (80-96); MEAN PLT VOLUME 7.7 fl (7.5-11.1); PLATELET COUNT 179 10^3/uL (134-434); RBC 3.47 M/mm3 (3.60-5.2); RDW 18.1 % (11.6-15.6); WHITE BLOOD COUNT 15.9 K/mm3 (4.0-10.0)
[2021-11-19 06:59] LABS: CHLORIDE 122 mmol/L (98-107); SODIUM 148 mmol/L (136-145)
[2021-11-19 07:11] LABS: ALBUMIN 1.2 g/dl (3.4-5.0); ANION GAP 18 MMOL/L (8-16); BLOOD UREA NITROGEN 37.8 mg/dL (7-18); CALCIUM 7.1 mg/dL (8.5-10.1); CO2 7 mmol/L (21-32)
[2021-11-19 07:13] LABS: SGPT/ALT 634 U/L (13-61)
[2021-11-19 07:14] LABS: CREATININE 1.5 mg/dL (0.55-1.3)
[2021-11-19 07:15] LABS: BILIRUBIN,TOTAL 0.9 mg/dL (0.2-1); TOT PROT 4.2 g/dl (6.4-8.2)
[2021-11-19 07:16] LABS: ALK PHOS 159 U/L (45-117)
[2021-11-19 07:18] LABS: GLUCOSE,RANDOM 43 mg/dL (74-106)
[2021-11-19 07:24] LABS: SGOT/AST 931 U/L (15-37)
[2021-11-19] MEDS ORDERED: DEXTROSE 50%-WATER - 25 GM/50 ML VIAL IVPUSH PRN (07:41)
[2021-11-19] MEDS: TIMOLOL 0.5% OPHTHALMIC SOL 5 ML BOTTLE OD SCH (10:17)
[2021-11-19] MEDS: LEVOTHYROXINE SODIUM 100 MCG VIAL IVPUSH SCH (10:19)
[2021-11-19] MEDS ORDERED: SODIUM CHLORIDE 1,000 ML IV STA (11:12)
[2021-11-20] MEDS ORDERED: PIPERACILLIN/TAZOBACTAM 2.25 GM VIAL IVPB ONE ×2 (01:42→09:34)
[2021-11-20] MEDS ORDERED: DEXTROSE 5%-WATER - 50 ML IVPB ONE ×2 (01:42→09:34)
[2021-11-20] MEDS: PIPERACILLIN/TAZOB 2.25 GM 2.25 GM in DEXTROSE 5%-WATER - 50 ML IVPB SCH ×2 (01:46→09:36)
[2021-11-20] MEDS: SODIUM CHLORIDE 1,000 ML IV SCH ×2 (05:37→11:15)
[2021-11-20] MEDS ORDERED: DEXTROSE 5%-NORMAL SALINE 1,000 ML IV SCH (08:45)
[2021-11-20] MEDS: LEVOTHYROXINE SODIUM 100 MCG VIAL IVPUSH SCH (09:37)
[2021-11-20 10:10] LABS: HEMATOCRIT 26.1 % (32.4-45.2); HEMOGLOBIN 7.6 GM/dL (10.7-15.3); MCH 29.8 pg (25.7-33.7); MCHC 29.3 g/dl (32.0-36.0); MEAN CELL VOLUME 101.6 fl (80-96); PLATELET COUNT 81 10^3/uL (134-434); RBC 2.57 M/mm3 (3.60-5.2); RDW 18.9 % (11.6-15.6)
[2021-11-20 10:37] LABS: CHLORIDE 127 mmol/L (98-107); SODIUM 150 mmol/L (136-145)
[2021-11-20 10:41] LABS: ANION GAP 12 MMOL/L (8-16); BLOOD UREA NITROGEN 40.5 mg/dL (7-18); CO2 12 mmol/L (21-32); GLUCOSE,RANDOM 101 mg/dL (74-106); MAGNESIUM 1.9 mg/dL (1.8-2.4)
[2021-11-20 10:44] LABS: CREATININE 1.6 mg/dL (0.55-1.3); PHOSPHOROUS 7.4 mg/dL (2.5-4.9); SGOT/AST 802 U/L (15-37); SGPT/ALT 383 U/L (13-61)
[2021-11-20 10:45] LABS: TOT PROT 3.4 g/dl (6.4-8.2)
[2021-11-20 10:46] LABS: BILIRUBIN,TOTAL 0.7 mg/dL (0.2-1)
[2021-11-20 10:52] LABS: ALBUMIN 0.9 g/dl (3.4-5.0); ALK PHOS 120 U/L (45-117); CALCIUM 6.6 mg/dL (8.5-10.1)
[2021-11-20 12:32] LABS: ANISOCYTOSIS 1+; MACROCYTOSIS 1+; PLATELET ESTIMATE DECREASED
[2021-11-20] MEDS: TIMOLOL 0.5% OPHTHALMIC SOL 5 ML BOTTLE OD SCH (13:22)
[2021-11-20 13:33] VITALS: BP 49/38; TEMP 97.1
[2021-11-20 14:01] VITALS: PULSE 54
[2021-11-21 00:08] LABS: HCV ALPHA 2 MACRO CHART 123 mg/dL (110-276)
== END 2021-11-20 18:31 | disposition expired | DRG 871 ==
LOC: JER 21:12 → JERBED 11-18 00:51 → J4S 11-18 20:25
PROVIDERS: ADMIT Internal Medicine; ATTEND Family Medicine
DX: A41.89 Other specified sepsis (principal); I63.9 Cerebral infarction, unspecified; K72.00 Acute and subacute hepatic failure without coma; E43 Unspecified severe protein-calorie malnutrition; J96.90 Respiratory failure, unspecified, unspecified whether with hypoxia or hypercapnia; E87.0 Hyperosmolality and hypernatremia; I24.8 Other forms of acute ischemic heart disease; N39.0 Urinary tract infection, site not specified; N17.9 Acute kidney failure, unspecified; Z68.1 Body mass index [BMI] 19.9 or less, adult; I50.32 Chronic diastolic (congestive) heart failure; R29.729 NIHSS score 29; I11.0 Hypertensive heart disease with heart failure; G31.83 Neurocognitive disorder with Lewy bodies; F02.80 Dementia in other diseases classified elsewhere, unspecified severity, without behavioral disturbance, psychotic disturbance, mood disturbance, and anxiety; D64.9 Anemia, unspecified; H54.40 Blindness, one eye, unspecified eye; H91.93 Unspecified hearing loss, bilateral; E78.5 Hyperlipidemia, unspecified; E04.1 Nontoxic single thyroid nodule; I95.9 Hypotension, unspecified; R74.01 Elevation of levels of liver transaminase levels; L89.150 Pressure ulcer of sacral region, unstageable; F41.9 Anxiety disorder, unspecified; R62.7 Adult failure to thrive; R13.10 Dysphagia, unspecified; B96.20 Unspecified Escherichia coli [E. coli] as the cause of diseases classified elsewhere; R91.8 Other nonspecific abnormal finding of lung field; Z86.718 Personal history of other venous thrombosis and embolism
CPT/HCPCS: 36415; 70450-TC; 70496-TC; 70498-TC; 71045-TC-FY; 76705-TC; 80053; 80061; 81003; 82172; 82553; 82803; 82962; 82977; 83010; 83036; 83605; 83735; 83883; 84100; 84460; 84484; 85025; 85027; 85610; 85730; 86704; 86705; 86708; 86850; 86900; 86901; 87040; 87086; 87186; 87340; 87350; 93005; 93010; 99285-25; C9803-CS; U0003; U0005